=== PATIENT | female | born 1930 | race Caucasian/White ===

== ENCOUNTER → 2017-08-03 | Outpatient (CLI) | payer MEDICARE ==
[~2017-08-03] MED LIST: ALLOPURINOL300 MG PO; AMBIEN5 MG PO; BENTYL10 MG PO; COUMADIN5 MG PO; COUMADIN7.5 MG PO; EPLERENONE; FLUCONAZOLE100 MG PO; FLUTICASONE NASAL; FOLIC ACID1 MG PO; GUIATUSS AC SY120 ML PO; HYDROCODONE; K-DUR10 MEQ; KLOR-CON M2020 MEQ PO; LANTUS100 UNITS/ SQ; LASIX40 MG PO; LEVAQUIN500 MG PO; LISINOPRIL5 MG PO; LOPID600 MG PO; METOPROLOL SUCC50 MG PO; MULTAQ400 MG PO; NEXIUM40 MG PO; NORCO 10-325 T1 EACH PO; NOVOLOG MI100 UNITS/; NOVOLOG100 UNIT/1; PANTOPRAZOLE SO40 MG PO; PRADAXA75 MG; PRINIVIL20 MG PO; SIMVASTATIN40 MG PO; ULTRAM50 MG PO; VITAMIN D1000 UNIT; WARFARIN SODIUM5 MG PO; Z.0.COREG3.125 MG; Z.0.LANTUS100 UNIT/1; Z.0.LASIX40 MG; Z.0.LOPID600 MG; Z.0.NOVOLOG100 UNIT/; Z.0.PRAVASTATIN SOD4; Z.0.VITAMIN D1000 UN; Z.0.WELLBUTRIN XL150; Z.0.ZYLOPRIM300 MG; [UNRECOGNIZED DRUG - OTHER]; [UNRECOGNIZED DRUG - OTHER]; [UNRECOGNIZED DRUG - OTHER]
--- NOTE | 2017-08-03 12:17 | Diagnostic Imaging Report ---
History: Off balance and gait abnormality for 2 months Comparison studies: None Technique: Sagittal T2; axial DWI, FLAIR, MPGR, T1, Coronal FLAIR. Intravenous contrast: None Findings: Scalp: Normal in signal . No masses . Bone marrow: Normal in signal intensity. Extra-axial: Bilateral hemispheric laminar T2/FLAIR hyperintensity, and T1 hypointensity at the subdural spaces measuring approximately 0.5 cm in thickness, without significant blooming or mass effect over the adjacent brain parenchyma . Brain sulci: Appropriate for age. Ventricles: Normal in size . No hydrocephalus . Parenchyma: Scattered T2/FLAIR hyperintensities of the periventricular and deep white matter. Similar changes are seen at the herminio. No masses, acute or chronic vascular insults. Suprasellar region: No abnormalities. Craniocervical junction: No abnormalities. Patent foramen magnum. No Chiari one malformation. Vessels: Normal flow-voids in the arteries and sinuses. Bilateral cataract surgery changes. IMPRESSION: 1. No acute abnormalities. 2. Bilateral hemispheric chronic laminar subdural hematomas without significant mass effect or midline shift. 3. Mild chronic microvascular ischemic changes of the white matter. The above finding was reported and acknowledged by Dr. Keane at 12:12 PM 08/03/2017. Signed by: DR Tu Arriaga M.D. on 08/03/2017 12:13 PM
== END ==
LOC: MRI 08:42
PROVIDERS: ATTEND Family Medicine
DX: R26.9 Unspecified abnormalities of gait and mobility (principal)
CPT/HCPCS: 70551; 93880

== ENCOUNTER → 2017-10-14 | Outpatient (CLI) | payer OTHER ==
--- NOTE | 2017-10-14 14:55 | Diagnostic Imaging Report ---
Exam: Brain MRI without with IV contrast History: Gait abnormality , subdural hematoma Comparison studies: Brain MRI 08/03/2017, head CT 10/03/2012. Technique: Sagittal and axial T2, axial and coronal T2 flair, axial T2*GRE, axial T1 FLAIR and axial DWI Intravenous contrast: None Findings: Scalp: Normal in signal . No masses . Bone marrow: Normal in signal intensity. Brain volume: Appropriate for age. No disproportionate lobar, brainstem, cerebellar or hippocampal atrophy. Ventricles: Normal in size. No hydrocephalus. Extra axial spaces: Bilateral chronic hemispheric subdural hematomas without significant mass effect have further decreased in size and measure up to 1 to 2 mm in max thickness (previously 5 mm). Parenchyma: No mass, hemorrhage or acute ischemia. A few T2 FLAIR hyperintense foci in the supratentorial white matter and mildly confluent T2 FLAIR hyperintense signal changes in the herminio are nonspecific but most compatible with chronic small vessel ischemic changes. Suprasellar region: No abnormalities. Craniocervical junction: Patent foramen magnum. No Chiari malformation . Vessels: Normal flow-voids in the arteries and sinuses. Incidental findings: Bilateral lens or placement related to previous cataract surgery. Disc osteophyte complexes at C3-C4 and C4-C5 and thickened ligamentum flavum result in mild canal stenosis at C3-C4 and moderate canal stenosis at C4-C5. IMPRESSION: 1. 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 2. No new hemorrhage or other changes from the previous brain MRI of 08/30/2017. 3. Mild supratentorial and moderate pontine chronic microvascular ischemic changes. 4. No additional intracranial abnormalities. Signed by: Dr. Reji Vidal M.D. on 10/14/2017 2:52 PM
== END ==
LOC: MRI 11:05
PROVIDERS: ATTEND Psychiatry & Neurology Neurology
DX: I62.00 Nontraumatic subdural hemorrhage, unspecified (principal); R93.0 Abnormal findings on diagnostic imaging of skull and head, not elsewhere classified; R26.9 Unspecified abnormalities of gait and mobility
CPT/HCPCS: 70551

== ENCOUNTER → 2018-01-25 | Outpatient (CLI) | payer MEDICARE | LOC: CARD 08:22 | PROVIDERS: ATTEND Family Medicine | DX: I70.209 Unspecified atherosclerosis of native arteries of extremities, unspecified extremity (principal) | CPT/HCPCS: 93925 ==

== ENCOUNTER → 2018-12-14 | Outpatient (CLI) | payer MEDICARE ==
--- NOTE | 2018-12-14 12:16 | Diagnostic Imaging Report ---
EXAMINATION: Renal ultrasound. CLINICAL HISTORY :UTI COMPARISON: <None available.> TECHNIQUE: Grayscale and color Doppler evaluation of the kidneys and bladder was performed in transverse and longitudinal planes. DISCUSSION: RIGHT KIDNEY: The right kidney measures 10.5 cm in length and shows echogenicity. Septated cyst measures 2.8 x 2.8 x 2.4 cm. Additional simple cyst measures 2.4 x 2.3 x 2.2 cm. Scattered echogenic foci within the collecting system and oblique parenchyma. LEFT KIDNEY: The left kidney measures 10.4 cm in length and shows normal renal cortical echogenicity. exophytic simple cyst measures 3.1 x 3 x 3.7 cm. Second anechoic cyst measures 2.9 x 2 x 2.7 cm. Third simple cyst measures 1.8 x 1.2 x 1.5 cm. BLADDER: Right and left ureteral jets are identified. Incidental note of multiple punctate echogenic foci within the spleen, likely calcified granulomata. IMPRESSION: Bilateral simple renal cysts. Multiple suspected small right renal calculi without hydronephrosis. More peripheral punctate calcifications may represent cortical calcifications. CT abdomen and pelvis without contrast may be of benefit for further evaluation. Signed by: Dr. Reji Ivy M.D. on 12/14/2018 12:13 PM
== END ==
LOC: US 10:26
PROVIDERS: ATTEND Urology
DX: N39.0 Urinary tract infection, site not specified (principal)
CPT/HCPCS: 76770

== ENCOUNTER → 2019-01-30 | Day surgery (SDC) | payer MEDICARE ==
--- NOTE | 2019-01-26 12:30 | Diagnostic Imaging Report ---
EXAMINATION: PA and lateral views of the chest. COMPARISON: None CLINICAL HISTORY: Preoperative study for urological procedure DISCUSSION: Lungs are well-inflated. Calcified granuloma right lower lobe. No airspace consolidation, pleural effusion, or pneumothorax. Tortuous thoracic aorta. Otherwise normal heart size. No overt pulmonary edema. No acute osseous abnormality. Surgical clips left anterior chest wall. IMPRESSION: No acute cardiopulmonary abnormalities. Signed by: Dr. Reji Ivy M.D. on 01/26/2019 12:26 PM
[~2019-01-30] MED LIST changes: +ASPIR 8181 MG PO; +DEXAMETHASONE SOD PHOS INJ 4 MG/ML VIAL ONE; +DILTIAZEM 24HR120 M1 PO; +GABAPENTIN100 MG PO; +HUMALOG100 UNIT/1 SC; +LABETALOL HCL 0 ML ONE; +LEVEMIR100 UNIT/1 SC; +LEVOFLOXACIN 500MG/D5W 100ML 100 ML IV ONE; +LIDOCAINE HCL 2% LOCAL INJ 5 ML SDV VIAL INJ ONE; +MULTI-VITAMIN1 EACH PO; +NITROFURANTOIN100 MG PO; +ONDANSETRON HCL INJ 2MG/ML 2ML 2 MG/ML VIAL ONE; +PROPOFOL IV EMULSION 10 MG/ML 20 ML VIAL ONE; +SEVOFLURANE INHAL SOLN 250 ML PEN BTL ONE
--- OUTSIDE RECORDS SUMMARY | 2019-01-30 09:51 | XMS REPORT ---
Author Author Abdulaziz Hamm Organization [employer] Address Unknown Phone Unavailable Care Team Providers Care Motion Picture Scene Builder Name Role Phone Abdulaziz Hamm CP Unavailable Allergies No Known Allergies Problems Problem Type Condition Code Onset Dates Condition Status Problem DM w/ complication E11.8 Active Problem [place] (dyspnea on exertion) R06.09 Active Problem Dizziness R42 Active Problem DJD (degenerative joint disease) M19.90 Active Problem A-fib I48.91 Active Problem Angina pectoris I20.9 Active Problem Abnormal EKG R94.31 Active Problem Venous (peripheral) insufficiency I87.2 Active Problem Shortness of breath R06.02 Active Problem Swelling of limb M79.89 Active Problem Anginal equivalent I20.8 Active Problem 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 I10 Active Problem Pure hypercholesterolemia E78.01 Active Problem Hypercholesteremia E78.00 Active Medications No Known Medications Results No Known Results Summary Purpose [employer] Submission
--- OUTSIDE RECORDS SUMMARY | 2019-01-30 09:51 | XMS REPORT | CCD ---
Author Author Auto Generated Organization [facility] Address Unknown Phone Unavailable Care Team Providers Care Tailor Garment Fitter Name Role Phone Milan Barkley RP Allergies, Adverse Reactions, Alerts Substance Reaction Status Amoxil Active Bactrim Active Imuran Active vancomycin Active Vaseline Active Medications Medication Instructions Start Date End Date Status Vitamin D3 1000 intl 1,000 IntlUnit, 1 cap, PO, Q 07/03/2012 Ordered units oral capsule [id number]-Tu-[id number], Every other day, 100 cap, Substitution Allowed, CAP Every other day Lactated Ringers 1,000 mL, Rate: 25 ml/hr, Infuse 07/06/2012 07/06/2012 Discontinued Injection IV 1,000 over: 40 hr, Route: IV, kg, Total mL Volume: 1,000, Start date: 07/06/12 12:17:00, Duration: 1 day, Stop date: 07/07/12 12:16:00 Vital Signs Most recent to oldest [Reference Range]: 1 2 3 Height 165.10 cm (07/03/2012 11:44:00) Temperature Oral [96.4-99.1 DegF] 97.8 DegF (07/03/2012 12:27:00) Systolic Blood Pressure [90-140 mmHg] 135 mmHg (07/06/2012 15:30:00) 126 mmHg (07/06/2012 15:15:00) 116 mmHg (07/06/2012 15:00:00) Diastolic Blood Pressure [60-90 mmHg] 71 mmHg (07/06/2012 15:30:00) 68 mmHg (07/06/2012 15:15:00) 65 mmHg (07/06/2012 15:00:00) Respiratory Rate [14-20 BRMIN] 16 BRMIN (07/06/2012 15:30:00) 16 BRMIN (07/06/2012 15:15:00) 16 BRMIN (07/06/2012 15:00:00) Peripheral Pulse Rate [60-100 bpm] 78 bpm (07/03/2012 12:27:00) Weight 79.545 kg (07/03/2012 11:44:00) Results BEDSIDE GLUCOSE TESTING Most recent to oldest [Reference Range]: 1 Gluc POC Lifscn [70-99 mg/dL] 134 mg/dL 1 *HI* (07/06/2012 12:31:00) 1Interpretive Data: Upper Reportable Limit: 200 mg/dL. CHEMISTRY Most recent to oldest [Reference Range]: 1 Sodium Lvl [135-145 mEq/L] 142 mEq/L (07/03/2012 12:45:00) Potassium Lvl [3.5-5.1 mEq/L] 4.0 mEq/L (07/03/2012 12:45:00) Chloride Lvl [95-109 mEq/L] 104 mEq/L (07/03/2012 12:45:00) CO2 [24-32 mEq/L] 32 mEq/L (07/03/2012 12:45:00) AGAP [10.0-20.0 mEq/L] 10.0 mEq/L (07/03/2012 12:45:00) Creatinine Lvl [0.5-1.4 mg/dL] 1.7 mg/dL *HI* (07/03/2012 12:45:00) eGFR 28 mL/min/1.73m2 2 *NA* (07/03/2012 12:45:00) BUN [7-22 mg/dL] 38 mg/dL *HI* (07/03/2012 12:45:00) Glucose Lvl [70-99 mg/dL] 158 mg/dL 3 *HI* (07/03/2012 12:45:00) Calcium Lvl [8.5-10.5 mg/dL] 9.6 mg/dL (07/03/2012 12:45:00) 2Result Comment: The eGFR is calculated using the CKD-EPI formula. In most young, healthy individuals the eGFR will be >90 mL/min/1.73m2. The eGFR declines with age. An eGFR of 60-89 may be normal in some populations, particularly the elderly, for whom the CKD-EPI formula has not been extensively validated. Use of the eGFR is not recommended in the following populations: Individuals with unstable creatinine concentrations, including patients and those with serious co-morbid conditions. Patients with extremes in muscle mass or diet. The data above are obtained from the National Kidney Disease Education Program ( NKDEP) which additionally recommends that when the eGFR is used in patients with extremes of body mass index for purposes of drug dosing, the eGFR should be mul tiplied by the estimated BMI. 3Interpretive Data: Adult reference range values reflect the clinical guidelines of the [place] [employer].
--- OUTSIDE RECORDS SUMMARY | 2019-01-30 09:51 | XMS REPORT | Clinical Summary ---
Author Author [employer] Organization [facility] Address Unknown Phone Unavailable Care Team Providers Care Orthopedics Pediatric Physician Name Role Phone Shiv Keane PCP Allergies Comments Active Allergy Reactions Severity Noted Date Amoxicillin Itching 07/12/2018 Kidney failure Sulfamethoxazole-Trimetho Other (See 07/12/2018 prim Comments) Severe anemia Azathioprine Other (See 07/12/2018 Comments) Dementia like symptoms Metoprolol Other (See 07/12/2018 Comments) Dabigatran Etexilate GI Bleeding 07/12/2018 Stroke symptoms Simvastatin Other (See 07/12/2018 Comments) Vancomycin Itching 07/12/2018 infection White Petrolatum Other (See 07/12/2018 Comments) Medications End Date Status Medication Sig Dispensed Refills Start Date Active allopurinol (ZYLOPRIM) Take 300 mg 0 300 MG tabletIndications: by mouth 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 Active furosemide (LASIX) 40 MG Take 40 mg by 0 tabletIndications: mouth 2 (two) Idiopathic chronic gout times a day. of multiple sites without tophus Active lisinopril Take 20 mg by 0 (PRINIVIL,ZESTRIL) 20 MG mouth daily. 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 of multiple sites without tophus Active insulin GLARGINE (LANTUS) Inject 35 0 100 unit/mL Units under injectionIndications: the skin Idiopathic chronic gout nightly. of multiple sites without tophus Active insulin asp prt-insulin Inject under 0 ASPART (NovoLOG 70/30) the skin 2 100 unit/mL (70-30) (two) times a injectionIndications: day before Idiopathic chronic gout meals. of multiple sites without tophus Active gabapentin (NEURONTIN) Take 100 mg 0 100 mg capsule by mouth 3 (three) times a day. Active amLODIPine (NORVASC) 10 Take 10 mg by 0 mg tablet mouth daily. Active mv-min/iron/folic/calcium Take by mouth 0 /vitK (WOMEN'S daily. MULTIVITAMIN ORAL) 07/12/2018 Discontinued metoprolol tartrate TK 1 T PO BID 0 (LOPRESSOR) 50 MG 6 tabletIndications: Idiopathic chronic gout of multiple sites without tophus 07/12/2018 Discontinued warfarin (COUMADIN) 5 MG Take 5 mg by 0 tabletIndications: mouth daily. Idiopathic chronic gout Take 1 tablet of multiple sites without (5mg) by tophus mouth daily for 30 days. 07/19/2018 Discontinued aspirin (ECOTRIN) 81 MG Take 81 mg by 0 enteric coated tablet mouth daily. 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 SLE (systemic lupus erythematosus) Diabetes mellitus with neuropathy Hypertension GERD without esophagitis Hyperlipidemia Anxiety and depression Asthma Encounters Care Team Description Date Type Specialty Jaime Gloria MD 07/19/2018 Anesthesia General Surgery Event Purnima Tao MD LEFT BREAST LUMPECTOMY W/ POSSIBLE ONCOPLASTIC CLOSURE 07/19/2018 Surgery General Surgery Purnima Tao MD Pre-op testing 07/19/2018 [facility] General Surgery Encounter Purnima Tao MD Pre-op testing (Primary Dx) 07/12/2018 Pre-Admit Pre-Admission Testing Testing Appointment Purnima Tao MD Pre-op testing 07/12/2018 Hospital Radiology Encounter after 01/29/2018 Family History Medical History Relation Name Comments Diabetes Father Heart attack Father Cancer Mother Parkinsonism Mother Relation Name Status Comments Father Mother Social History Date Tobacco Use Types Packs/Day Years Used Never Smoker Smokeless Tobacco: Never Used Tobacco Cessation: Counseling Given: No Alcohol Use Drinks/Week oz/Week Comments No Sex Assigned at Date Recorded Not on file Industry Job Start Date Occupation Not on file Not on file Not on file Travel End Travel History Travel Start No recent travel history available. Last Filed Vital Signs Time Taken Vital Sign Reading 07/19/2018 1:35 PM MAIL MESSENGER CONTRACTOR Blood Pressure 150/80 07/19/2018 1:35 PM MAIL MESSENGER CONTRACTOR Pulse 98 07/19/2018 12:32 PM MAIL MESSENGER CONTRACTOR Temperature 36.4 C (97.5 F) 07/19/2018 1:35 PM MAIL MESSENGER CONTRACTOR Respiratory Rate 20 07/19/2018 1:35 PM MAIL MESSENGER CONTRACTOR Oxygen Saturation 98% - Inhaled Oxygen - Concentration 07/19/2018 8:52 AM MAIL MESSENGER CONTRACTOR Weight 73.1 kg (161 lb 1.6 oz) 07/19/2018 8:52 AM MAIL MESSENGER CONTRACTOR Height 165.1 cm (5' 5") 07/19/2018 8:52 AM MAIL MESSENGER CONTRACTOR Body Mass Index 26.81 Plan of Treatment Health Maintenance Due Date Last Done Comments DIABETIC RETINAL EYE EXAM 1931 DIABETIC FOOT EXAM 1941 URINE MICROALBUMIN 1941 SHINGLES VACCINES (#1) 1981 65+ PNEUMOCOCCAL VACCINE 1996 (1 of 2 - PCV13) INFLUENZA VACCINE 03/01/2019 Procedures Comments Procedure Name Priority Date/Time Associated Diagnosis BREAST SPECIMEN Routine 07/19/2018 12:35 PM MAIL MESSENGER CONTRACTOR POC GLUCOSE Routine 07/19/2018 12:13 PM MAIL MESSENGER CONTRACTOR SURGICAL PATHOLOGY Routine 07/19/2018 REQUEST 11:14 AM MAIL MESSENGER CONTRACTOR WI AN ELECTIVE Routine 07/19/2018 SUPRAGLOTTIC AIRWAY 10:58 AM MAIL MESSENGER CONTRACTOR Procedure Note - Wing Vazquez CRNA - 07/19/2018 10:58 AM MAIL MESSENGER CONTRACTOR ANESTHESIA INTUBATION Date/Time: 07/19/2018 10:45 AM Performed by: Wing Vazquez CRNA Authorized by: Alejandro Gloria MD Location: OR Urgency: Elective Anesthesio logist: Alejandro Gloria MD Resident/C RNA/AA: Wing Vazquez CRNA Performed by: resident/C RNA and resident/C RNA/AA Preoxygena ning with 100% O2: Yes C-spine Precaution s Maintained Throughout : Yes Mask Ventilatio n: Not attempted Final Airway Type: Supraglott ic airway Final LMA: Unique LMA Size: 4 Number of Attempts at Approach: 1 Teeth intact, atraumatic intubation INCISIONAL BIOPSY, BREAST 07/19/2018 LEFT BREAST CANCER 10:35 AM MAIL MESSENGER CONTRACTOR C50.112 POC GLUCOSE Routine 07/19/2018 9:43 AM MAIL MESSENGER CONTRACTOR XR CHEST 2 VW Routine 07/12/2018 Pre-op testing 2:48 PM MAIL MESSENGER CONTRACTOR ESTIMATED GFR Routine 07/12/2018 2:20 PM MAIL MESSENGER CONTRACTOR COMPREHENSIVE METABOLIC Routine 07/12/2018 Pre-op testing PANEL 2:20 PM MAIL MESSENGER CONTRACTOR HC COMPLETE BLD COUNT Routine 07/12/2018 Pre-op testing W/AUTO DIFF 2:20 PM MAIL MESSENGER CONTRACTOR after 01/29/2018 Results * Breast Specimen (07/19/2018 12:35 PM MAIL MESSENGER CONTRACTOR) Specimen Narrative Performed At EXAMINATION:BREAST [id number]/19/2018 12:35 PM [employer] IMPRESSION: Intra-operative digital Faxitron breast specimen radiography was provided for the surgeon by [facility]. A radiologist was not contacted or involved in the interpretation of the images. Please see the surgical operative and/or pathology note for further information and image interpretation. [id number] Performing Organization Address City/[facility]/Zipcode Phone Number [email or web address] [address] [place] [address] * POC glucose (07/19/2018 12:13 PM MAIL MESSENGER CONTRACTOR) Only the most recent of 2 results within the time period is included. Pathologist [facility] POC glucose 84 65 - 99 mg/dL [facility] Comment: [facility] Meter ID: [id number] [facility] Film And Video Editor: Kvng Carroll Specimen Performing Organization Address City/[facility]/Zipcode Phone Number [facility] [address]MENT [place] [id number] [place] [address] [place] [id number] PATHOLOGY AND GENOMIC MEDICINE [facility] [id number] [place] [address] [place] [address] [facility] * Surgical pathology request (07/19/2018 11:14 AM MAIL MESSENGER CONTRACTOR) Pathologist [facility] DEPARTMENT OF PATHOLOGY AND GENOMIC MEDICINE Surgical See link below for PDF Lab [facility] pathology Report DEPARTMENT OF report PATHOLOGY AND GENOMIC MEDICINE Result status This is Final Report for [facility] [id number] DEPARTMENT OF PATHOLOGY AND GENOMIC MEDICINE Specimen Performing Organization Address [facility] Phone Number [address] [place] [phone] PATHOLOGY AND GENOMIC MEDICINE * XR Chest 2 Vw (07/12/2018 2:48 PM MAIL MESSENGER CONTRACTOR) Specimen Narrative Performed At EXAMINATION:XR CHEST 2 VW RADIANT CLINICAL HISTORY:Z01.818 Encounter for other preprocedural examination, pre op COMPARISON:12/20/2001 IMPRESSION: 1.Small calcified granuloma in the right midlung field. Lungs are otherwise clear. 2.Top normal heart size. Aorta is mildly atherosclerotic. 3.No acute osseous abnormality. [id number] Procedure Note Hm Interface, Radiology Results Incoming - 07/12/2018 2:57 PM MAIL MESSENGER CONTRACTOR EXAMINATION: XR CHEST 2 VW CLINICAL HISTORY: Z01.818 Encounter for other preprocedural examination, pre op COMPARISON: 12/20/2001 IMPRESSION: 1. Small calcified granuloma in the right midlung field. Lungs are otherwise clear. 2. Top normal heart size. Aorta is mildly atherosclerotic. 3. No acute osseous abnormality. [id number] Performing Organization Address [facility] Facility[facility] Phone Number [facility] [address] [place] [address] * Estimated GFR (07/12/2018 2:20 PM MAIL MESSENGER CONTRACTOR) Estimated GFR 37 (A) mL/min/1.73 m2 [facility] Comment: [facility] rpretation G1 >=90 Normal or high G2 60-89Mildly decreased [id number] Mildly to moderately decreased [id number] Moderately to severely decreased G4 15-29Severely decreased G5 <15Kidney failure The eGFR was calculated using the Chronic Kidney Disease Epidemiology Collaboration (CKD-EPI) equation. Interpretation is based on recommendations of the National Kidney Foundation-Kidney Disease Outcomes Quality Initiative (NKF-KDOQI) published in 2014. Specimen Plasma specimen Performing Organization Address City/[facility]/Zipcode Phone Number [facility] DEPARTMENT OF [address] [place] [address] [place] [address] PATHOLOGY AND GENOMIC MEDICINE [address] * CBC with platelet and differential (07/12/2018 2:20 PM MAIL MESSENGER CONTRACTOR) [facility] WBC 10.95 4.50 - 11.00 k/uL [facility] RBC 4.56 4.20 - 5.50 m/uL [facility] HGB 13.1 12.0 - 16.0 g/dL [facility] HCT 41.1 37.0 - 47.0 % [facility] MCV 90.1 82.0 - 100.0 fL [facility] MCH 28.7 27.0 - 34.0 pg [facility] MCHC 31.9 31.0 - 37.0 g/dL [facility] RDW - SD 52.4 37.0 - 55.0 fL [facility] MPV 10.4 8.8 - 13.2 fL [facility] Platelet count 324 150 - 400 k/uL [facility] Nucleated RBC 0.00 /100 WBC [facility] Neutrophils 62.9 39.0 - 69.0 % [facility] Lymphocytes 22.4 (L) 25.0 - 45.0 % [facility] Monocytes 8.5 0.0 - 10.0 % [facility] Eosinophils 4.8 0.0 - 5.0 % [facility] Basophils 0.9 0.0 - 1.0 % [facility] Specimen Blood Performing Organization Address City/State/Zipcode Phone Number [facility] [id number] [place] [address] [place] [address] PATHOLOGY AND GENOMIC MEDICINE [address] * Comprehensive metabolic panel (07/12/2018 2:20 PM MAIL MESSENGER CONTRACTOR) [facility] Sodium 142 135 - 148 mEq/L [facility] Potassium 3.6 3.5 - 5.0 mEq/L [facility] Chloride 99 98 - 112 mEq/L [facility] CO2 29 24 - 31 mEq/L [facility] Anion gap 14@ANIO 7 - 15 mEq/L [facility] BUN 29 (H) 8 - 23 mg/dL [facility] Creatinine 1.30 (H) 0.50 - 0.90 mg/dL [facility] Glucose 169 (H) 65 - 99 mg/dL [facility] Calcium 10.3 (H) 8.8 - 10.2 mg/dL [facility] Protein 7.7 6.3 - 8.3 g/dL [facility] Comment: [facility] [place] [place] 4.6-7.0 g/dL 1 week 4.4-7.6 g/dL 7 months-1year 5.1-7.3 g/dL 1-2 years5.6-7 .5 g/dL >3 years6.0-8 .0 g/dL 18-150 6.3-8.3 g/dL Albumin 4.6 3.5 - 5.0 g/dL [facility] A/G ratio 1.5 0.7 - 3.8 [facility] Alkaline 110 (H) 35 - 104 U/L [facility] phosphatase [facility] AST 17 10 - 35 U/L [facility] ALT 16 5 - 50 U/L [facility] Total bilirubin 0.3 0.0 - 1.2 mg/dL [facility] Specimen Plasma specimen Performing Organization Address City/State/Zipcode Phone Number [facility] DEPARTMENT [address] [place] [address] PATHOLOGY AND GENOMIC MEDICINE [facility] [id number] [place] [address] [place] [address] [facility] after 01/29/2018 Insurance Type Payer Benefit Subscriber ID Effective Phone Address Plan / Dates Group PPO HUMANA MEDICARE HUMANA xxxxxxxxx [id number] MEDICARE resent PPO/PFFS/E [facility] Advance Directives Patient has advance care planning documents on file. For more information, ketan price contact: [facility] [address] [place] [address]
--- OUTSIDE RECORDS SUMMARY | 2019-01-30 09:51 | XMS REPORT | Continuity of Care Document ---
Author Author [employer] Address Unknown Phone Unavailable Care Team Providers Care Furnace Keeper Name Role Phone [employer] Unavailable Unavailable Problems Problem Status Onset Date Classification Date Reported Comments Source 599.72; BENIGN ESSENTIAL MICROSCOPIC HEM Active 12/18/2014 [facility] 401.9/250.00/787.20/V16.0/530.81/535.00/ Active 06/15/2012 [facility] DM w/ complication Active Problem 05/04/2018 Mohamed O Erickludi FAIRBANKS Active Problem 05/04/2018 Mohamed O Jerludi Dizziness Active Problem 05/04/2018 Mohamed O Nighatdi DJD Active Problem 05/04/2018 Mohamed O Erickoudi A-fib Active Problem 05/04/2018 Mohamed O Jeroudi Angina pectoris Active Problem 05/04/2018 Mohamed O Jeroudi Abnormal EKG Active Problem 05/04/2018 Mohamed O Erickoudi Venous insufficiency Active Diagnosis 05/04/2018 Mohamed O Jeroudi Shortness of breath Active Problem 05/04/2018 Mohamed O Jeroudi Swelling of limb Active Problem 05/04/2018 Mohamed O Jeroudi Anginal equivalent Active Problem 05/04/2018 Mohamed O Erickludi 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 Active Problem 05/04/2018 Mohamed O Erickoudi Pure hypercholesterolemia Active Problem 05/04/2018 Mohamed O Jeroudi Hypercholesteremia Active Diagnosis 05/04/2018 Mohamed O Erickoudi HYPERTENSION NOS Active [facility] 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 [facility] DYSPHAGIA NOS Active [facility] Medications Medication Details Route Status Patient Instructions Ordering Provider Order Date Source Lactated Ringers Injection IV 1,000 mL 1,000 mL, Rate: 25 ml/hr, Infuse over: 40 hr, Route: IV, kg, Total Volume: 1,000, Start date: 07/06/12 12:17:00, Duration: 1 day, Stop date: 07/07/12 12:16:00 IV No Longer Active Prem 07/06/2012 [facility] Vitamin D3 1000 intl units oral capsule 1,000 IntlUnit, 1 cap, PO, Q --, Every other day, 100 cap, Substitution Allowed, CAPEvery other day PO Active 07/03/2012 [facility] Lantus Solution NA Active 35 UNITS Once a day Noris Hamm Potassium Chloride 1 capsule Orally Active 20 MEQ Orally BID Noris Hamm Lasix 1 tablet Orally Active 40 mg Orally once a day Noris Hamm Pantoprazole Sodium 1 tablet Orally Active 40 mg Orally Once a day Noris Hamm Gemfibrozil 1 tablet Orally Active 600 MG Orally Once a day Noris Hamm Warfarin Sodium 1/2 tabletWF, 1 tablet MTTHSS Orally Active 5 MG Orally Once a day Noris Hamm Lisinopril 1 tablet Orally Active 40 MG Orally Once a day Noris Hamm NovoLog Solution Subcutaneous Active sliding scale Subcutaneous Noris Hamm Gabapentin 1 tablet Orally Active 100 MG Orally daily Noris Hamm Amlodipine Besylate 1/2 half tablet Orally Active 10 MG Orally twice a day (bid) Noris Hamm Humalog not defined Subcutaneous Active 100 UNIT/ML Subcutaneous Noris Hamm Aspirin 1 tablet Orally Active 81 MG Orally Once a day Noris Hamm Allopurinol 1 tablet Orally Active 300 MG Orally Once a day Noris Hamm Allergies, Adverse Reactions, Alerts Substance Category Reaction Severity Reaction type Status Date Reported Comments Source Bactrim Adverse Reaction Kidney Failure Adverse Reaction Active 01/13/2017 Abdulaziz Hamm Imuran Adverse Reaction Severe anemia Adverse Reaction Active 01/13/2017 Abdulaziz Hamm Vaseline Adverse Reaction Infection Adverse Reaction Active 01/13/2017 Abdulaziz Hamm Pradaxa Adverse Reaction Colon Hemorrhage Adverse Reaction Active 01/13/2017 Abdulaziz Hamm Amoxicillin Adverse Reaction Caused itching Adverse Reaction Active 01/13/2017 Abdulaziz Hamm Vancomycin HCl Adverse Reaction Iching Adverse Reaction Active 01/13/2017 Abdulaziz Hamm Simvastatin Adverse Reaction difficulty walking Adverse Reaction Active 01/13/2017 Abdulaziz Hamm Metoprolol Tartrate Adverse Reaction weakness/memory impairement Adverse Reaction Active 01/13/2017 Abdulaziz Hamm Amoxil drug allergy Allergy Active [facility] vancomycin drug allergy Allergy Active [facility] Immunizations No Data Provided for This Section Results Order Name Results Value Reference Range Date Interpretation Comments Source BEDSIDE GLUCOSE TESTING Gluc POC Lifscn 134 70 - 99 07/06/2012 [facility] <sup>1</sup>Interpretive Data: Upper Reportable Limit: 200 mg/dL. [facility] CHEMISTRY AGAP 10.0 10.0 - 20.0 07/03/2012 Normal [facility] CHEMISTRY Potassium Lvl 4.0 3.5 - 5.1 07/03/2012 Normal [facility] CHEMISTRY Calcium Lvl 9.6 8.5 - 10.5 07/03/2012 Normal [facility] CHEMISTRY CO2 32 24 - 32 07/03/2012 Normal [facility] CHEMISTRY Chloride Lvl 104 95 - 109 07/03/2012 Normal [facility] CHEMISTRY Glucose Lvl 158 70 - 99 07/03/2012 [facility] <sup>3</sup>Interpretive Data: Adult reference range values reflect the clinical guidelines
of the [place] [employer]. [facility] CHEMISTRY Creatinine Lvl 1.7 0.5 - 1.4 07/03/2012 [facility] CHEMISTRY Sodium Lvl 142 135 - 145 07/03/2012 Normal [facility] CHEMISTRY BUN 38 7 - 22 07/03/2012 [facility] CHEMISTRY eGFR 28 07/03/2012 NA <sup>2</sup>Result Comment: The eGFR is calculated using the CKD-EPI formula. In most young, healthy individuals the eGFR will be >90 mL/min/1.73m2. The eGFR declines with age. An eGFR of 60-89 may be normal in some populations, particularly the elderly, for whom the CKD-EPI formula has not been extensively validated. Use of the eGFR is not recommended in the following populations:& lt;br/>
Individuals with unstable creatinine concentrations, including patients and those with serious co-morbid conditions.

Patients with extremes in muscle mass or diet.

The data above are obtained from the National Kidney Disease Education Program (NKDEP) which additionally recommends that when the eGFR is used in patients with extremes of body mass index for purposes of drug dosing, the eGFR should be multiplied by the estimated BMI. [facility] Pathology Reports No Data Provided for This Section Diagnostic Reports No Data Provided for This Section Consultation Notes No Data Provided for This Section Discharge Summaries No Data Provided for This Section History and Physicals No Data Provided for This Section Vital Signs Vital Sign Value Date Comments Source Weight 166 01/05/2018 Mohamed O Ercikoudi Height 65 01/05/2018 Mohamed O Jeroudi Temperature Oral (F) 98.1 F 01/05/2018 Mohamed O Jeroudi Heart Rate 90 01/05/2018 Mohamed O Jeroudi Diastolic (mm Hg) 86 01/05/2018 Mohamed O Jeroudi Systolic (mm Hg) 140 01/05/2018 Mohamed O Jeroudi Weight 161 07/04/2017 Mohamed O Jeroudi Height 65 07/04/2017 Mohamed O Jeroudi Temperature Oral (F) 98.6 F 07/04/2017 Mohamed O Jeroudi Heart Rate 92 07/04/2017 Mohamed O Jeroudi Diastolic (mm Hg) 90 07/04/2017 Mohamed O Jeroudi Systolic (mm Hg) 142 07/04/2017 Mohamed O Jeroudi Weight 160 01/13/2017 Mohamed O Jeroudi Height 65 01/13/2017 Mohamed O Jeroudi Temperature Oral (F) 97.6 F 01/13/2017 Mohamed O Jeroudi Heart Rate 70 01/13/2017 Mohamed O Jeroudi Diastolic (mm Hg) 80 01/13/2017 Mohamed O Jeroudi Systolic (mm Hg) 136 01/13/2017 Mohamed O Jeroudi Respitory Rate 16 07/06/2012 [facility] Systolic (mm Hg) 135 07/06/2012 [facility] Diastolic (mm Hg) 71 07/06/2012 [facility] Respitory Rate 16 07/06/2012 [facility] Systolic (mm Hg) 126 07/06/2012 [facility] Diastolic (mm Hg) 68 07/06/2012 [facility] Respitory Rate 16 07/06/2012 [facility] Systolic (mm Hg) 116 07/06/2012 [facility] Diastolic (mm Hg) 65 07/06/2012 [facility] Temperature Oral (F) 97.8 F 07/03/2012 [facility] Heart Rate 78 07/03/2012 [facility] Weight 79.545 07/03/2012 [facility] Height 165.10 cm 07/03/2012 [facility] Encounters Location Location Details Encounter Type Encounter Number Reason For Visit Attending Provider ADM Date DC Date Status Source [facility] [id number] SP MARIE 07/06/2012 07/06/2012 Discharged [facility] Procedures No Data Provided for This Section Assessment and Plan No Data Provided for This Section Plan of Care No Data Provided for This Section Social History No Data Provided for This Section Family History No Data Provided for This Section Advance Directives No Data Provided for This Section Functional Status No Data Provided for This Section
--- OUTSIDE RECORDS SUMMARY | 2019-01-30 09:52 | XMS REPORT ---
Author Author Magnolia Hamm Organization [employer] Address Unknown Phone Unavailable Care Team Providers Care Delivery And Mail Sorter Name Role Phone Magnolia Hamm Unavailable Allergies, Adverse Reactions, Alerts Substance Reaction Event Type Pradaxa Colon Hemorrhage Drug Allergy Amoxicillin Caused itching Drug Allergy Bactrim Kidney Failure Drug Allergy Vaseline Infection Drug Allergy Vancomycin HCl Iching Drug Allergy Simvastatin difficulty walking Drug Allergy Metoprolol Tartrate weakness/memory impairement Drug Allergy Imuran Severe anemia Drug Allergy Problems Problem Type Condition Code Onset Dates Condition Status Problem DM w/ complication E11.8 Active Problem FAIRBANKS (dyspnea on exertion) R06.09 Active Problem Dizziness R42 Active Problem DJD (degenerative joint disease) M19.90 Active Assessment Venous (peripheral) insufficiency I87.2 Active Problem A-fib I48.91 Active Problem Angina pectoris I20.9 Active Problem Abnormal EKG R94.31 Active Problem Venous (peripheral) insufficiency I87.2 Active Problem Shortness of breath R06.02 Active Problem Swelling of limb M79.89 Active Assessment Abnormal EKG R94.31 Active Assessment [place] (dyspnea on exertion) R06.09 Active Assessment DM w/ complication E11.8 Active Assessment Hypercholesteremia E78.00 Active Problem Anginal equivalent I20.8 Active Problem 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 I10 Active Assessment 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 I10 Active Problem Pure hypercholesterolemia E78.01 Active Assessment A-fib I48.91 Active Problem Hypercholesteremia E78.00 Active Medications Medication Code System Code Instructions Start Date End Date Status Dosage Lantus NDC 0 35 UNITS Once a day Active Solution Potassium Chloride [facility] [address]-02 20 MEQ Orally BID Active 1 capsule Lasix ND 36766432893 40 mg Orally once a day Active 1 tablet Pantoprazole Sodium ND 15724019214 40 mg Orally Once a day Active 1 tablet Gemfibrozil ND 70019758126 600 MG Orally Once a day Active 1 tablet Warfarin Sodium [facility] 55371515338 5 MG Orally Once a day Active 1/2 tabletWF, 1 tablet MTTHSS Lisinopril [facility] 27871471164 40 MG Orally Once a day Active 1 tablet NovoLog [facility] 92136630369 sliding scale Subcutaneous Active Solution Gabapentin [facility] 07824978123 100 MG Orally daily Active 1 tablet Amlodipine Besylate [facility] 02304006440 10 MG Orally twice a day (bid) Active 1/2 half tablet Vital Signs Date/Time: January 13, 2017 BMI 26.62 Index Weight 160 lbs Height 65 in Temperature 97.6 F Cardiac Monitoring Heart Rate 70 /min Blood Pressure Diastolic 80 mm Hg Blood Pressure Systolic 136 mm Hg Results No Known Results Summary Purpose [employer] Submission
--- OUTSIDE RECORDS SUMMARY | 2019-01-30 09:52 | XMS REPORT ---
Author Author [facility] Address Unknown Phone Unavailable Care Team Providers Care Licensed Embalmer Name Role Phone Doris WESTON Unavailable Unavailable SONIA NICOLE Unavailable Unavailable BONNIE KEANE Unavailable Unavailable Problems This patient has no known problems. Allergies, Adverse Reactions, Alerts This patient has no known allergies or adverse reactions. Medications This patient has no known medications. Results Test Description Test Time Test Comments Text Results Atomic Results Result Comments CHEST 2 VIEWS 2019-01-26 12:24:00 [place] [address] Patient Name: JUSTIN MIRANDA MR #: [id number] : 1930 Age/Sex: 88/F Req #: [id number] Adm Physician: Ordered by: RADHA WESTON MD Report #: [id number] Location: OR Room/Bed: Procedure: [id number] DX/CHEST 2 VIEWS Exam Date: 01/26/19 Exam Time: 1200 REPORT STATUS: Signed EXAMINATION: PA and lateral views of the chest. COM PARISON: None CLINICAL HISTORY: Preoperative study for urological procedure DISCUSSION: Lungs are well-inflated. Calcified granuloma right lower lobe. No airspace consolidation, pleural effusion, or pneumothorax. Tortuous thoracic aorta. Otherwise normal heart size. No overt pulmonary edema. No acute osseous abnormality. Surgical clips left anterior chest wall. IMPRESSION: No acute cardiopulmonary abnormalities. Signed by: Dr. Janet Shafer M.D. on 01/26/2019 12:26 PM Dictated By: JANET SHAFER MD 25 Transcribed By: ELIZABETH on 01/26/191225 COPY TO: RADHA WESTON MD RENAL RETROPERITONEAL COMP 2018-12-14 12:10:00 [place] [address] Patient Name: JUSTIN MIRANDA MR #: [id number] : 1930 Age/Sex: 88/F Req #: [id number] [facility] Physician: Ordered by: RADHA WESTON MD Report #: [id number] Location: Room/Bed: Procedure: [id number] US/US RENAL RETROPERITONEAL COMP Exam Date: Exam Time: REPORT STATUS: Signed EXAMINATION: Renal ultrasound. CLINICAL HISTORY :UTI COMPARISON: <None available.> TECHNIQUE: Grayscale and color Doppler evaluation of the kidneys and bladder was performed in transverse and longitudinal planes. DISCUSSION: RIGHT KIDNEY: The right kidney measures 10.5 cm in length and shows echogenicity. Septated cyst measures 2.8 x 2.8 x 2.4 cm. Additional simple cyst measures 2.4 x 2.3 x 2.2 cm. Scattered echogenic foci within the collecting system and oblique parenchyma. LEFT KIDNEY: The left kidney measures 10.4 cm in length and shows normal renal cortical echogenicity. exophytic simple cyst measures 3.1 x 3 x 3.7 cm. Second anechoic cyst measures 2.9 x 2 x 2.7 cm. Third simple cyst measures 1.8 x 1.2 x 1.5 cm. BLADDER: Right and left ureteral jets are identified. Incidental note of multiple punctate echogenic foci within the spleen, likely calcified granulomata. IMPRESSION: Bilateral simple renal cysts. Multiple suspected small right renal calculi without hydronephrosis. More peripheral punctate calcifications may represent cortical calcifications. CT abdomen and pelvis without contrast may be of benefit for further evaluation. Signed by: Dr. Janet Shafer M.D. on 12/14/2018 12:13 PM Dictated By: JANET SHAFER MD 1213 Transcribed By: ELIZABETH on 12/14/18 1213 COPY TO: RADHA WESTON MD DIAG MAMM BILATERAL ZENA CAD DIGITAL 2018-06-14 08:42:59 - DIAG MAMM BILATERAL ZENA CAD DIGITALBILATERAL DIGITAL DIAGNOSTIC MAMMOGRAM 3D/2D WITH CAD: 06/13/2018CLINICAL: Follow up to previous exam. Digital breast tomosynthesis was performed in addition to routine CC and MLO views. Current mammographic images were evaluated by either a [facility] M-Vu or a [employer] ImageChecker CAD (computer aided detection system). Comparison is made to exam dated 02/06/2018 mammogram - [facility]. The tissue of both breasts is heterogeneously dense. This may lower the sensitivity of mammography. There are benign vascular calcifications in both breasts. The mass in the left breast at 11 o'clock is less well defined. KNOWN BIOPSY PROVEN MALIGNANCYUltrasound pending for further evaluation.- BREAST ULTRASOUND BILATERALULTRASOUND OF BOTH BREASTS AND BOTH AXILLA: 06/13/2018Comparison is made to exam dated 02/06/2018 mammogram - [facility]. Real-time ultrasound of both breasts and both axilla was performed. 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 There are areas of degeneration throughout the mass. No abnormalities were seen sonographically in either axilla. Benign cysts and dilated ducts were seen bilaterally. No solid masses were seen. IMPRESSION: KNOWN BIOPSY PROVEN MALIGNANCY - FOLLOW-UP RECOMMENDEDThe 3.5 cm mass in the left breast is showing only minimal response. Consideration should be given to surgical removal. Cheyenne Zhu M.D. dm/:06/14/2018 08:42:59 Entry: - 06/16/2018 10:58:32copy to: Abdulaziz Bland M.D., ph: [phone], fax: [phone] Technologist: Yael PEÑA, [facility] Mamm[facility] BI-RADS: 6 Known biopsy proven malignancy Ultrasound BI-RADS: 6 Known biopsy proven malignancy BREAST ULTRASOUND BILATERAL 2018-06-14 08:42:59 - DIAG MAMM BILATERAL ZENA CAD DIGITALBILATERAL DIGITAL DIAGNOSTIC MAMMOGRAM 3D/2D WITH CAD: 06/13/2018CLINICAL: Follow up to previous exam. Digital breast tomosynthesis was performed in addition to routine CC and MLO views. Current mammographic images were evaluated by either a [facility]u or a [employer] ImageChecker CAD (computer aided detection system). Comparison is made to exam dated [facility]06/2018 [facility]. The tissue of both breasts is heterogeneously dense. This may lower the sensitivity of mammography. There are benign vascular calcifications in both breasts. The mass in the left breast at 11 o'clock is less well defined. KNOWN BIOPSY PROVEN MALIGNANCYUltrasound pending for further evaluation.- BREAST ULTRASOUND BILATERALULTRASOUND OF BOTH BREASTS AND BOTH AXILLA: 06/13/2018Comparison is made to exam dated 02/06/2018 [facility]. Real-time ultrasound of both breasts and both axilla was performed. 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 There are areas of degeneration throughout the mass. No abnormalities were seen sonographically in either axilla. Benign cysts and dilated ducts were seen bilaterally. No solid masses were seen. IMPRESSION: KNOWN BIOPSY PROVEN MALIGNANCY - FOLLOW-UP RECOMMENDEDThe 3.5 cm mass in the left breast is showing only minimal response. Consideration should be given to surgical removal. Cheyenne Zhu M.D. dm/:06/14/2018 08:42:59 Entry: - 06/16/2018 10:58:32copy to: Abdulaziz Bland M.D., ph: [phone], fax: [phone] Technologist: Yael PEÑA, [facility] Mammogram BI-RADS: 6 Known biopsy proven malignancy Ultrasound BI-RADS: 6 Known biopsy proven malignancy MRI BRAIN WO [place] [address] Patient Name: JUSTIN MIRANDA MR #: [id number] : 1930 Age/Sex: 87/F Req #: [id number] Adm Physician: Ordered by: SONIA NICOLE MD Report #: [id number] Location: MRI Room/Bed: Procedure: [id number] MRI/MRI BRAIN WO Exam Date: Exam Time: REPORT STATUS: Signed Exam: Brain MRI without with IV contrast History: Gait abnormality , subdural hematoma Comparison studies: Brain MRI 08/03/2017, head CT 10/03/2012. Technique: Sagittal and axial T2, axial and coronal T2 flair, axial T2*GRE, axial T1 FLAIR and axial DWI Intravenous contrast: None Findings: Scalp: Normal in signal . No masses . Bone marrow: Normal in signal intensity. Brain volume: Appropriate for age. No disproportionate lobar, brainstem, cerebellar or hippocampal atrophy. Ventricles: Normal in size. No hydrocephalus. Extra axial spaces: Bilateral chronic hemispheric subdural hematomas without significant mass effect have further decreased in size and measure up to 1 to 2 mm in max thickness (previously 5 mm). Parenchyma: No mass, hemorrhage or acute ischemia. A few T2 FLAIR hyperintense foci in the supratentorial white matter and mildly confluent T2 FLAIR hyperintense signal changes in the herminio are nonspecific but most compatible with chronic small vessel ischemic changes. Suprasellar region: No abnormalities. Craniocervical junction: Patent foramen magnum. No Chiari malformation . Vessels: Normal flow-voids in the arteries and sinuses. Incidental findings: Bilateral lens or placement related to previous cataract surgery. Disc osteophyte complexes at C3-C4 and C4-C5 and thickened ligamentum flavum result in mild canal stenosis at C3-C4 and moderate canal stenosis at C4-C5. IMPRESSION: 1. 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 2. No new hemorrhage or other changes from the previous brain MRI of 08/30/2017. 3. Mild supratentorial and moderate pontine chronic microvascular ischemic changes. 4. No additional intracranial abnormalities. Signed by: Dr. Janet Vidal M.D. on 10/14/2017 2:52 PM Dictated By: JANET VIDAL MD 51 Transcribed By: ELIZABETH on 10/14/17 145 COPY TO: SONIA NICOLE MD MRI BRAIN WO [place] [address] Patient Name: JUSTIN MIRANDA MR #: [id number] : 1930 Age/Sex: 87/F Req #: [id number] Adm Physician: Ordered by: BONNIE KEANE DO Report #: [id number] Location: MRI Room/Bed: Procedure: [id number] MRI/MRI BRAIN WO Exam Date: 08/03/17 Exam Time: 0915 REPORT STATUS: Signed History: Off balance and gait abnormality for 2 months Comparison studies: None Technique: Sagittal T2; axial DWI, FLAIR, MPGR, T1, Coronal FLAIR. Intravenous contrast: None Findings: Scalp: Normal in signal . No masses . Bone marrow: Normal in signal intensity. Extra-axial: Bilateral hemispheric laminar T2/FLAIR hyperintensity, and T1 hypointensity at the subdural spaces measuring approximately 0.5 cm in thickness, without significant blooming or mass effect over the adjacent brain parenchyma . Brain sulci: Appropriate for age. Ventricles: Normal in size . No hydrocephalus . Parenchyma: Scattered T2/FLAIR hyperintensities of the periventricular and deep white matter. Similar changes are seen at the herminio. No masses, acute or chronic vascular insults. Suprasellar region: No abnormalities. Craniocervical junction: No abnormalities. Patent foramen magnum. No Chiari one malformation. Vessels: Normal flow-voids in the arteries and sinuses. Bilateral cataract surgery changes. IMPRESSION: 1. No acute abnormalities. 2. Bilateral hemispheric chronic laminar subdural hematomas without significant mass effect or midline shift. 3. Mild chronic microvascular ischemic changes of the white matter. The above finding was reported and acknowledged by Dr. Keane at 12:12 PM 08/03/2017. Signed by: DR Tu Arriaga M.D. on 08/03/2017 12:13 PM Dictated By: TU HORTON MD 1213 Transcribed By: ELIZABETH on 08/03/17 1213 COPY TO: BONNIE KEANE DO
--- OUTSIDE RECORDS SUMMARY | 2019-01-30 09:52 | XMS REPORT ---
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 Name Role Phone Magnolia Hamm Unavailable Allergies, [...] Instructions Start Date End Date Status Dosage Humalog ND 10315903989 100 UNIT/ML Subcutaneous Active not defined Gemfibrozil ND 51622401670 600 MG Orally Once a day Active 1 tablet Aspirin NDC 99825179720 81 MG Orally Once a day Active 1 tablet Lisinopril ND 68126909745 40 MG Orally Once a day Active 1 tablet Allopurinol ND 70476099711 300 MG Orally Once a day Active 1 tablet Lantus ND 0 35 UNITS Once a day Active Solution Lasix NDC 49140918328 40 mg Orally once a day Active 1 tablet Amlodipine Besylate [facility] 08167802558 10 MG Orally twice a day (bid) Active 1/2 half tablet Gabapentin [facility] 16943905039 100 MG Orally daily Active 1 tablet Potassium Chloride [facility] [address]-90 20 MEQ Orally BID Active 1 capsule Pantoprazole Sodium [facility] 49972724160 40 mg Orally Once a day Active 1 tablet Vital Signs Date/Time: January 05, 2018 BMI 27.62 Index Weight 166 lbs Height 65 in Temperature 98.1 F Cardiac Monitoring Heart Rate 90 /min Blood Pressure Diastolic 86 mm Hg Blood Pressure Systolic 140 mm Hg Results No Known Results Summary Purpose eClinicalWorks Submission
--- OUTSIDE RECORDS SUMMARY | 2019-01-30 09:52 | XMS REPORT ---
Author Author Abdulaziz Hamm Organization [employer] Address Unknown Phone Unavailable Care Team Providers Care Career Services Director Name Role Phone Abdulaziz Hamm CP Unavailable Allergies, Adverse Reactions, Alerts Substance Reaction [...] Instructions Start Date End Date Status Dosage Amlodipine Besylate ND 07418640142 10 MG Orally twice a day (bid) Active 1/2 half tablet Lasix ND 68380028159 40 mg Orally once a day Active 1 tablet Allopurinol ND 84119746572 300 MG Orally Once a day Active 1 tablet Lantus NDC 0 35 UNITS Once a day Active Solution Warfarin Sodium ND 02333317213 5 MG Orally Once a day Active 1/2 tabletMWF, 1 tablet TTHSS Lisinopril ND 80479613500 40 MG Orally Once a day Active 1 tablet Potassium Chloride [facility] [address]-65 20 MEQ Orally BID Active 1 capsule Pantoprazole Sodium [facility] 30257485529 40 mg Orally Once a day Active 1 tablet Gabapentin [facility] 95050856434 100 MG Orally daily Active 1 tablet Humalog [facility] 26275493549 100 UNIT/ML Subcutaneous Active not defined Gemfibrozil [facility] 84667782577 600 MG Orally Once a day Active 1 tablet Amlodipine Besylate [facility] 39341926804 10 MG Orally Once a day Active 1 tablet Vital Signs Date/Time: Jul 04, 2017 BMI 26.79 Index Weight 161 lbs Height 65 in Temperature 98.6 F Cardiac Monitoring Heart Rate 92 /min Blood Pressure Diastolic 90 mm Hg Blood Pressure Systolic 142 mm Hg Results No Known Results Summary Purpose [employer] Submission
[2019-01-30 14:45] VITALS: BP 159/91
--- NOTE | 2019-02-22 16:24 | Operative Report ---
DATE OF PROCEDURE: 01/30/2019 SURGEON: Quentin Rosenbaum MD PREOPERATIVE DIAGNOSIS: Recurrent urinary tract infections. POSTOPERATIVE DIAGNOSIS: Recurrent urinary tract infections. OPERATIVE PROCEDURES: 1. Cystoscopy. 2. Bladder biopsy. ANESTHESIA: General anesthesia. ESTIMATED BLOOD LOSS: Minimal. INDICATIONS: Ms. Gricel Calderon is an 88-year-old woman with a history of recurrent urinary tract infections and recent hospitalization for sepsis. She now presents for definitive surgical management of this problem. PROCEDURE IN DETAIL: The patient was brought in the operative room, placed in supine position. After initiation of general anesthesia, was placed in dorsal lithotomy position and prepped and draped in the usual sterile fashion. Cystourethroscopy was performed using 22-Belgian cystoscope. Anterior and posterior urethra noted to be normal. 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 There were no other significant mucosal lesions identified. Even though she had recently voided her bladder was noted to have a volume greater than 100 mL consistent with moderate postvoid residual. Using the cold cup bladder biopsy forceps, biopsies were obtained from areas of erythema and these were sent to pathology for microscopic analysis. The Bugbee electrode was used to fulgurate these both sites, so there was no bleeding noted at the conclusion of the procedure. The bladder was then drained in its entirety and the patient was returned to supine position. Anesthesia was reversed and the patient was transferred to a bed and taken to the postanesthesia care unit in good condition. Of note, the needle and instrument count were correct at the conclusion of the case. Quentin Rosenbaum MD HLW/MODL /[id number]
== END | disposition home or self-care (01) ==
LOC: OR 09:39
PROVIDERS: ATTEND Urology
DX: N30.80 Other cystitis without hematuria (principal); E11.22 Type 2 diabetes mellitus with diabetic chronic kidney disease; I12.9 Hypertensive chronic kidney disease with stage 1 through stage 4 chronic kidney disease, or unspecified chronic kidney disease; N18.9 Chronic kidney disease, unspecified; H91.90 Unspecified hearing loss, unspecified ear; R06.09 Other forms of dyspnea; I48.91 Unspecified atrial fibrillation; K44.9 Diaphragmatic hernia without obstruction or gangrene; M10.9 Gout, unspecified; Z88.1 Allergy status to other antibiotic agents; Z88.0 Allergy status to penicillin; Z88.8 Allergy status to other drugs, medicaments and biological substances; Z01.818 Encounter for other preprocedural examination; Z79.4 Long term (current) use of insulin; Z79.82 Long term (current) use of aspirin; Z85.3 Personal history of malignant neoplasm of breast
CPT/HCPCS: 36415; 52214; 71046; 82948; 88305; J1100; J1956; J2001; J2405; J2704

== ENCOUNTER → 2019-05-23 | Outpatient (CLI) | payer MEDICARE ==
[~2019-05-23] MED LIST changes: -DEXAMETHASONE SOD PHOS INJ 4 MG/ML VIAL ONE; -LABETALOL HCL 0 ML ONE; -LEVOFLOXACIN 500MG/D5W 100ML 100 ML IV ONE; -LIDOCAINE HCL 2% LOCAL INJ 5 ML SDV VIAL INJ ONE; -ONDANSETRON HCL INJ 2MG/ML 2ML 2 MG/ML VIAL ONE; -PROPOFOL IV EMULSION 10 MG/ML 20 ML VIAL ONE; -SEVOFLURANE INHAL SOLN 250 ML PEN BTL ONE
--- NOTE | 2019-05-23 12:53 | Diagnostic Imaging Report ---
Barium enema, double-contrast. History: History of polyps. 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 A small amount of barium was introduced into the colon via the rectal tube. The rectum and sigmoid partially filled with contrast. At that point, the patient expelled the balloon tip and declined further attempts at imaging. Fluoro time: 0.07 min. Dose: 2.5 mGy (AJ) IMPRESSION: Patient unable to tolerate barium enema. Exam not completed. Signed by: Moises Mills on 05/23/2019 12:50 PM
== END ==
LOC: DX 08:18
PROVIDERS: ATTEND Internal Medicine Gastroenterology
DX: E11.9 Type 2 diabetes mellitus without complications (principal); I10 Essential (primary) hypertension; E66.3 Overweight; Z71.3 Dietary counseling and surveillance; Z86.010 Personal history of colon polyps
CPT/HCPCS: 74280

== ENCOUNTER → 2019-11-30 | Outpatient (CLI) | payer MEDICARE ==
--- NOTE | 2019-11-30 13:41 | Diagnostic Imaging Report ---
EXAMINATION: HIP RIGHT 2-3 VW (+/- PELVIS) INDICATION: Hip pain COMPARISON: None FINDINGS: AP and frog-leg views of the right hip demonstrate no acute fracture or dislocation. Alignment is anatomic. Mild right hip joint degenerative changes. Phleboliths in the pelvis. Scattered atherosclerotic arterial calcifications. IMPRESSION: No acute osseous injury. Signed by: Elías Ontiveros MD on 11/30/2019 1:38 PM
== END ==
LOC: RAD 12:32
PROVIDERS: ATTEND Family Medicine
DX: M25.551 Pain in right hip (principal)

== ENCOUNTER 2020-01-16 02:33 | Inpatient (IN) | payer MEDICARE, OTHER ==
[2020-01-16] VITALS (7 sets, daily range): BP systolic 113–166; BP diastolic 82–93
[~2020-01-16] VITALS: Ht 165.1 cm; Wt 81.8 kg
[2020-01-16] MEDS ORDERED: SODIUM CHLORIDE 0.9% 1000ML 1,000 ML IV STA (02:35)
[2020-01-16 03:42] LABS: BASOPHILS # (AUTO) 0.1 (0.0-0.1); BASOPHILS % 0.3 % (0.0-1.0); EOSINOPHILS # (AUTO) 0.1 (0.0-0.4); EOSINOPHILS % 0.3 % (0.0-6.0); HEMATOCRIT 40.6 % (34.2-44.1); HEMOGLOBIN 12.9 g/dL (12.0-16.0); LYMPHOCYTES # (AUTO) 0.7 (1.0-3.2); LYMPHOCYTES % 3.9 % (18.0-39.1); MEAN CORPUSCULAR HEMOGLOBIN 28.4 pg (28-32); MEAN CORPUSCULAR HGB CONC 31.8 g/dL (31-35); MEAN CORPUSCULAR VOLUME 89.2 fL (81-99); MONOCYTES # (AUTO) 0.9 (0.2-0.8); MONOCYTES % 4.9 % (4.4-11.3); NEUTROPHILS # (AUTO) 16.9 (2.1-6.9); NEUTROPHILS % 90.1 % (38.7-80.0); PLATELET COUNT 304 x10e3/uL (140-360); RED BLOOD COUNT 4.55 x10e6/uL (3.6-5.1)
[2020-01-16 03:52] LABS: ALBUMIN 3.4 g/dL (3.5-5.0); ANION GAP 19.7 mmol/L (8-16); CALCIUM 9.6 mg/dL (8.4-10.2); CREATININE, SERUM 1.78 mg/dL (0.57-1.11); POTASSIUM 3.7 mmol/L (3.5-5.1)
[2020-01-16 03:59] LABS: CREATINE KINASE MB 1.2 ng/mL (0-5.0)
--- NOTE | 2020-01-16 05:14 | Diagnostic Imaging Report ---
EXAM: CT Abdomen and Pelvis WITHOUT contrast INDICATION: Rectal bleeding COMPARISON: None. TECHNIQUE: Abdomen and pelvis were scanned utilizing a multidetector helical scanner from the lung base to the pubic symphysis without administration of IV contrast. Absence of intravenous contrast decreases sensitivity for detection of focal lesions and vascular pathology. Coronal and sagittal reformations were obtained. Routine protocol was performed. IV CONTRAST: None ORAL CONTRAST: None COMPLICATIONS: None RADIATION DOSE: Total DLP: 384 mGy*cm Estimated effective dose: (DLP x 0.015 x size factor) mSv CTDIvol has been reviewed. It is below the limits set by the Radiation Protocol Committee (RPC). Dose modulation, iterative reconstruction, and/or weight based adjustment of the mA/kV was utilized to reduce the radiation dose to as low as reasonably achievable. FINDINGS: LINES and TUBES: None. LOWER THORAX: 4 mm left basilar nodule. Moderate cardiomegaly. Mitral and aortic valve calcifications. HEPATOBILIARY: Several benign calcified hepatic granulomata. There are multiple scattered too small to characterize hypodensities in the liver, likely benign. No biliary ductal dilation. GALLBLADDER: Small stones. No wall thickening. SPLEEN: No splenomegaly. Several benign calcified splenic granulomata. PANCREAS: No focal masses or ductal dilatation. ADRENALS: No adrenal nodules KIDNEYS/URETERS: No hydronephrosis. Multiple bilateral renal cysts without complex features. Nonobstructive punctate renal I. No stones. GI TRACT: Smooth thickening and mild pericolonic fat stranding of the distal descending and sigmoid colon. There are diverticula within the colon No evidence of appendicitis. PELVIC ORGANS/BLADDER: Hysterectomy. No adnexal masses. Urinary bladder unremarkable. LYMPH NODES: No lymphadenopathy. VESSELS: Arterial vascular calcifications.. PERITONEUM / RETROPERITONEUM: No free air or fluid. BONES: Osseous demineralization. Degenerative changes. Low convex lumbar curvature. SOFT TISSUES: A 3.2 cm right perianal round soft tissue density . Focal nodular soft tissue density in the right breast IMPRESSION: 1. Edematous/inflammatory changes of the distal descending and sigmoid colon infection/inflammation such as diverticulitis, although this also could be due to ischemia. No direct evidence of bowel infarction. Arterial vascular calcifications in the infrarenal abdominal aorta. 2. A 3.2 cm right perianal round soft tissue density may represent a mass or large hemorrhage. Correlate with physical exam. 3. Focal nodular soft tissue density in the right breast, recommend dedicated mammographic evaluation. 4. Moderate cardiomegaly. Signed by: Neil Madrigal DO on 01/16/2020 5:10 AM
--- NOTE | 2020-01-16 05:33 | Emergency Department Note ---
History of Present Illnes History of Present Illness Chief Complaint: Abdominal Complaints History of Present Illness This is a 89 year old female presents to the ED for generalized weakness with rectal bleeding that was noted in the patient's diaper. . 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 Any updates have been documented here. 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 knee replacements cataracts heart catheterization Social History Smoking Cessation: Never Smoker Counseling Performed: Yes Any Illegal Drug Use: No Other Last Tetanus: Up to date Review of Systems Review of Systems Constitutional: Reports weakness EENTM: Reports no symptoms Cardiovascular: Reports no symptoms Respiratory: Reports no symptoms Gastrointestinal: Reports other (rectal bleeding) Genitourinary: Reports no symptoms Musculoskeletal: Reports no symptoms Integumentary: Reports no symptoms Neurological: Reports no symptoms Psychological: Reports no symptoms Endocrine: Reports no symptoms Hematological/Lymphatic: Reports no symptoms Physical Exam Related Data Allergies: Coded Allergies: dabigatran etexilate mesylate (Verified Allergy, Severe, COLON HEMMORHAGE, 10/03/12) sulfamethoxazole (Verified Allergy, Mild, kidney failure, 03/17/11) trimethoprim (Verified Allergy, Mild, kidney failure, 03/17/11) amoxicillin (Verified Allergy, Unknown, itching, 01/16/20) azathioprine (Verified Allergy, Unknown, severe anemia, 01/16/20) azathioprine sodium (Verified Allergy, Unknown, severe anemia, 01/16/20) simvastatin (Verified Allergy, Unknown, 01/16/20) vancomycin (Verified Allergy, Unknown, itching, 01/16/20) Uncoded Allergies: VASELINE (Allergy, Unknown, infection, 01/16/20) Triage Vital Signs Vital Signs Date Time Temp Pulse Resp B/P (MAP) Pulse Ox O2 Delivery O2 Flow Rate FiO2 01/16/20 02:33 98.7 104 20 141/85 97 Physical Exam CONSTITUTIONAL Constitutional: Present cachectic, Present ill appearing HENT HENT: Present normocephalic, Present atraumatic, Present oropharynx clear/moist, Present nose normal HENT L/R: Present left ext ear normal, Present right ext ear normal EYES Eyes: Reports PERRL, Reports conjunctivae normal NECK Neck: Present ROM normal PULMONARY Pulmonary: Present effort normal, Present breath sounds normal CARDIOVASCULAR Cardiovascular: Present regular rhythm, Present heart sounds normal, Present capillary refill normal, Present normal rate GASTROINTESTINAL Abdominal: Present soft, Present tender, Present other (external non-thrombosed hemorrhoid) GENITOURINARY Genitourinary: Present exam deferred SKIN Skin: Present warm, Present dry MUSCULOSKELETAL Musculoskeletal: Present ROM normal NEUROLOGICAL Neurological: Present alert, Present oriented x 3, Present no gross motor or sensory deficits PSYCHOLOGICAL Psychological: Present mood/affect normal, Present judgement normal Results Laboratory Result Diagram: 01/16/2030901/16/20 0310 Laboratory Laboratory Tests Test 01/16/20 03:10 White Blood Count 18.81 x10e3/uL (4.8-10.8) Red Blood Count 4.55 x10e6/uL (3.6-5.1) Hemoglobin 12.9 g/dL (12.0-16.0) Hematocrit 40.6 % (34.2-44.1) Mean Corpuscular Volume 89.2 fL (81-99) Mean Corpuscular Hemoglobin 28.4 pg (28-32) Mean Corpuscular Hemoglobin Concent 31.8 g/dL (31-35) Red Cell Distribution Width 17.0 % (11.7-14.4) Platelet Count 304 x10e3/uL (140-360) Neutrophils (%) (Auto) 90.1 % (38.7-80.0) Lymphocytes (%) (Auto) 3.9 % (18.0-39.1) Monocytes (%) (Auto) 4.9 % (4.4-11.3) Eosinophils (%) (Auto) 0.3 % (0.0-6.0) Basophils (%) (Auto) 0.3 % (0.0-1.0) Neutrophils # (Auto) 16.9 (2.1-6.9) Lymphocytes # (Auto) 0.7 (1.0-3.2) Monocytes # (Auto) 0.9 (0.2-0.8) Eosinophils # (Auto) 0.1 (0.0-0.4) Basophils # (Auto) 0.1 (0.0-0.1) Absolute Immature Granulocyte (auto 0.10 x10e3/uL (0-0.1) Activated Partial Thromboplast Time 31.0 seconds (23.8-35.5) Sodium Level 141 mmol/L (136-145) Potassium Level 3.7 mmol/L (3.5-5.1) Chloride Level 101 mmol/L (98-107) Carbon Dioxide Level 24 mmol/L (22-29) Anion Gap 19.7 mmol/L (8-16) Blood Urea Nitrogen 31 mg/dL (7-26) Creatinine 1.78 mg/dL (0.57-1.11) Estimat Glomerular Filtration Rate 27 ML/MIN (60-) BUN/Creatinine Ratio 17 (6-25) Glucose Level 190 mg/dL (74-118) Calcium Level 9.6 mg/dL (8.4-10.2) Total Bilirubin 0.5 mg/dL (0.2-1.2) Aspartate Amino Transf (AST/SGOT) 14 IU/L (5-34) Alanine Aminotransferase (ALT/SGPT) 12 IU/L (0-55) Alkaline Phosphatase 94 IU/L (40-150) Creatine Kinase 83 IU/L (29-168) Creatine Kinase MB 1.20 ng/mL (0-5.0) Troponin I 0.047 ng/mL (0-0.300) B-Type Natriuretic Peptide 187.1 pg/mL (0-100) Total Protein 6.9 g/dL (6.5-8.1) Albumin 3.4 g/dL (3.5-5.0) Globulin 3.5 g/dL (2.3-3.5) Albumin/Globulin Ratio 1.0 (0.8-2.0) Lipase 14 U/L (8-78) Imaging Imaging results reviewed: Yes Impressions [facility] [address] [place], [place] [id number] Patient Name: JUSTIN MIRANDA MR #: [id number] : 1930 Age/Sex: 89/F Req #: [id number] [facility] Physician: Ordered by: BROOKE GOODWIN DO Report #: [id number] Location: ER Room/Bed: Procedure: CT/CT ABDOMEN/PELVIS WO Exam Date: 01/16/20 Exam Time: 0400 REPORT STATUS: Signed EXAM: CT Abdomen and Pelvis WITHOUT contrast INDICATION: Rectal bleeding COMPARISON: None. TECHNIQUE: Abdomen and pelvis were scanned utilizing a multidetector helical scanner from the lung base to the pubic symphysis without administration of IV contrast. Absence of intravenous contrast decreases sensitivity for detection of focal lesions and vascular pathology. Coronal and sagittal reformations were obtained. Routine protocol was performed. IV CONTRAST: None ORAL CONTRAST: None COMPLICATIONS: None RADIATION DOSE: Total DLP: 384 mGy*cm Estimated effective dose: (DLP x 0.015 x size factor) mSv CTDIvol has been reviewed. It is below the limits set by the Radiation Protocol Committee (RPC). Dose modulation, iterative reconstruction, and/or weight based adjustment of the mA/kV was utilized to reduce the radiation dose to as low as reasonably achievable. FINDINGS: LINES and TUBES: None. LOWER THORAX: 4 mm left basilar nodule. Moderate cardiomegaly. Mitral and aortic valve calcifications. HEPATOBILIARY: Several benign calcified hepatic granulomata. There are multiple scattered too small to characterize hypodensities in the liver, likely benign. No biliary ductal dilation. GALLBLADDER: Small stones. No wall thickening. SPLEEN: No splenomegaly. Several benign calcified splenic granulomata. PANCREAS: No focal masses or ductal dilatation. ADRENALS: No adrenal nodules KIDNEYS/URETERS: No hydronephrosis. Multiple bilateral renal cysts without complex features. Nonobstructive punctate renal I. No stones. GI TRACT: Smooth thickening and mild pericolonic fat stranding of the distal descending and sigmoid colon. There are diverticula within the colon No evidence of appendicitis. PELVIC ORGANS/BLADDER: Hysterectomy. No adnexal masses. Urinary bladder unremarkable. LYMPH NODES: No lymphadenopathy. VESSELS: Arterial vascular calcifications.. PERITONEUM / RETROPERITONEUM: No free air or fluid. BONES: Osseous demineralization. Degenerative changes. Low convex lumbar curvature. SOFT TISSUES: A 3.2 cm right perianal round soft tissue density . Focal nodular soft tissue density in the right breast IMPRESSION: 1. Edematous/inflammatory changes of the distal descending and sigmoid colon infection/inflammation such as diverticulitis, although this also could be due to ischemia. No direct evidence of bowel infarction. Arterial vascular calcifications in the infrarenal abdominal aorta. 2. A 3.2 cm right perianal round soft tissue density may represent a mass or large hemorrhage. Correlate with physical exam. 3. Focal nodular soft tissue density in the right breast, recommend dedicated mammographic evaluation. 4. Moderate cardiomegaly. Signed by: Neil Madrigal DO on 01/16/2020 5:10 AM Dictated By: NEIL MADRIGAL DO 0510 Transcribed By: ELIZABETH on 01/16/20 0510 COPY TO: BROOKE GOODWIN DO~ Assessment & Plan Medical Decision Making MDM Patient with GI bleeding since this AM with weakness. Patient with noted elevated WBC and source of infection appears to be the diverticulitis noted on CTS. Green sheet initiated at 0533. patient admitted to the service of Dr Alfredo stinson with consultation to Dr Gabe Stinson (GI). Assessment & Plan Final Impression: (1) Diverticulitis (2) External hemorrhoid (3) Abnormal renal function Depart Disposition: ADMITTED Last Vital Signs Date Time Temp Pulse Resp B/P (MAP) Pulse Ox O2 Delivery O2 Flow Rate FiO2 01/16/20 02:33 98.7 104 20 141/85 97 Home Meds Reported Medications Multivitamin (MULTI-VITAMIN DAILY) 1 Each Tablet, 1 TAB PO DAILY 01/26/19 Insulin Detemir (LEVEMIR) 100 Unit/1 Ml Vial, 35 U SC HS 01/26/19 Insulin Lispro (HUMALOG) 100 Unit/1 Ml Cartridge, SC ACHS 01/26/19 Gabapentin (GABAPENTIN) 100 Mg Capsule, 100 MG PO BID 01/26/19 Aspirin (ASPIR 81) 81 Mg Tablet.dr, 81 MG PO DAILY 01/26/19 Nitrofurantoin Macrocrystal (NITROFURANTOIN) 100 Mg Capsule, 50 MG PO DAILY 01/26/19 Diltiazem Hcl (DILTIAZEM 24HR CD) 120 Mg Cap.er.24h, 120 MG PO DAILY 01/26/19 Gemfibrozil (LOPID) 600 Mg Tablet, 600 MG PO HS, TAB 08/26/14 Potassium Chloride (KLOR-CON M20) 20 Meq Tabcr, 20 MEQ PO DAILY 10/03/12 Pantoprazole Sodium* (PROTONIX) 40 Mg Tablet.dr, 40 MG PO DAILY 10/03/12 Lisinopril (LISINOPRIL) 5 Mg Tablet, 40 MG PO DAILY 10/03/12 Furosemide (LASIX) 40 Mg Tablet, 80 MG PO DAILY, 0 Refills 10/03/12 Allopurinol (ALLOPURINOL) 300 Mg Tablet, 300 MG PO DAILY 10/03/12 Medications in the ED Sodium Chloride 1,000 ml @ 0 mls/hr Q0M STAT IV ; Start 01/16/20 at 02:35; Stop 01/16/20 at 02:37; Status BROOKE MEJÍA DO Jan 16, 2020 05:33
[2020-01-16] MEDS ORDERED: ONDANSETRON HCL INJ 2MG/ML 2ML 2 MG/ML VIAL IV PRN (06:00)
[2020-01-16] MEDS ORDERED: MORPHINE SULFATE 2 MG/ML SYR 1ML IV PRN (06:00)
[2020-01-16] MEDS: CLINDAMYCIN 300MG 50 ML IV SCH ×3 (06:25→17:51)
[2020-01-16] MEDS: CIPROFLOXACIN 400 MG/D5W 200ML 200 ML IV SCH ×2 (06:59→18:24)
--- NOTE | 2020-01-16 07:45 | NUR ---
Received patient from ER via stretcher. Alert and oriented x4, denies pain at this time. IV in place to right arm, patent. Oriented to room, call light, bed rails, bathroom, and visiting policy. Verbalized understanding.
[2020-01-16] MEDS: SODIUM CHLORIDE 0.9% 1000ML 1,000 ML IV SCH ×2 (09:47→14:08)
[2020-01-16 10:58] LABS: CREATINE KINASE MB 0.9 ng/mL (0-5.0)
--- NOTE | 2020-01-16 12:05 | NUR ---
Called Dr. Alfredo Stinson answering service regarding consult for rectal bleeding. Spoke to Mikala. notified of consult.
[2020-01-16] MEDS: GABAPENTIN 100 MG CAP PO SCH (17:51)
[2020-01-16 19:07] LABS: CREATINE KINASE MB 0.8 ng/mL (0-5.0)
[2020-01-16] MEDS: GEMFIBROZIL 600 MG TAB PO SCH (21:54)
[2020-01-16] MEDS: LISINOPRIL 20 MG TAB PO SCH (21:54)
[2020-01-17] VITALS (8 sets, daily range): BP systolic 120–162; BP diastolic 68–110
[2020-01-17 05:54] LABS: BASOPHILS # (AUTO) 0.1 (0.0-0.1); BASOPHILS % 0.3 % (0.0-1.0); EOSINOPHILS # (AUTO) 0.2 (0.0-0.4); HEMATOCRIT 34.4 % (34.2-44.1); LYMPHOCYTES # (AUTO) 2.1 (1.0-3.2); LYMPHOCYTES % 14.2 % (18.0-39.1); MEAN CORPUSCULAR HEMOGLOBIN 29.5 pg (28-32); MEAN CORPUSCULAR VOLUME 92.2 fL (81-99); MONOCYTES % 6.8 % (4.4-11.3); NEUTROPHILS # (AUTO) 11.5 (2.1-6.9); NEUTROPHILS % 77.2 % (38.7-80.0); PLATELET COUNT 212 x10e3/uL (140-360); RED BLOOD COUNT 3.73 x10e6/uL (3.6-5.1)
[2020-01-17 05:55] LABS: INR 1.14; PROTHROMBIN TIME 15.3 seconds (11.9-14.5)
[2020-01-17] MEDS: SODIUM CHLORIDE 0.9% 1000ML 1,000 ML IV SCH ×5 (06:00→22:00)
[2020-01-17 06:31] LABS: ALBUMIN 2.5 g/dL (3.5-5.0); ALBUMIN/GLOBULIN RATIO 0.9 (0.8-2.0); ANION GAP 13.4 mmol/L (8-16); CALCIUM 8.4 mg/dL (8.4-10.2); CREATININE, SERUM 1.01 mg/dL (0.57-1.11); POTASSIUM 3.4 mmol/L (3.5-5.1)
--- NOTE | 2020-01-17 07:05 | NUR ---
RCD PT AT BED PT IS ALERT AND ORIENTED PT RESTING ON BED IV PATENT BED LOW AND LOCKED CALL LIGHT IN REACH
[2020-01-17] MEDS: PANTOPRAZOLE SOD 40 MG TABEC PO SCH (07:30)
[2020-01-17] MEDS: LISINOPRIL 20 MG TAB PO SCH (09:00)
[2020-01-17] MEDS: CLINDAMYCIN 300MG 50 ML IV SCH ×2 (09:00→16:32)
[2020-01-17] MEDS: DILTIAZEM HCL ER 120 MG CAP PO SCH (09:00)
[2020-01-17] MEDS: CIPROFLOXACIN 400 MG/D5W 200ML 200 ML IV SCH ×2 (09:00→16:32)
[2020-01-17] MEDS: NITROFURANTOIN 50 MG CAP PO SCH (09:00)
[2020-01-17] MEDS ORDERED: LISINOPRIL 2.5 MG TAB PO SCH (09:00)
[2020-01-17] MEDS: FUROSEMIDE 40 MG TAB PO SCH (09:00)
[2020-01-17] MEDS: POTASSIUM CHLORIDE 20 MEQ TAB CR PO SCH (09:00)
[2020-01-17] MEDS: GABAPENTIN 100 MG CAP PO SCH ×2 (09:00→16:32)
[2020-01-17] MEDS ORDERED: NITROFURANTOIN MACROCRYSTALS 100 MG CAP PO SCH (09:00)
[2020-01-17] MEDS: ASPIRIN 81 MG CHEW TAB PO SCH (09:00)
[2020-01-17] MEDS: MULTIVITAMINS/MINERALS TAB PO SCH (09:00)
[2020-01-17] MEDS: ALLOPURINOL 300 MG TAB PO SCH (09:00)
--- NOTE | 2020-01-17 18:47 | NUR ---
PT RESTING ON BED BED SIDE REPORT GIVEN TO ONCOMING NURSE
[2020-01-17] MEDS: GEMFIBROZIL 600 MG TAB PO SCH (21:29)
[2020-01-18] VITALS (8 sets, daily range): BP systolic 143–160; BP diastolic 83–96
[2020-01-18] MEDS: SODIUM CHLORIDE 0.9% 1000ML 1,000 ML IV SCH ×2 (04:30→14:00)
[2020-01-18 05:50] LABS: BASOPHILS # (AUTO) 0.1 (0.0-0.1); BASOPHILS % 0.5 % (0.0-1.0); EOSINOPHILS # (AUTO) 0.4 (0.0-0.4); EOSINOPHILS % 3.1 % (0.0-6.0); LYMPHOCYTES # (AUTO) 2.1 (1.0-3.2); LYMPHOCYTES % 16.1 % (18.0-39.1); MEAN CORPUSCULAR HEMOGLOBIN 29.2 pg (28-32); MEAN CORPUSCULAR HGB CONC 31.4 g/dL (31-35); MEAN CORPUSCULAR VOLUME 92.8 fL (81-99); MONOCYTES % 8.2 % (4.4-11.3); NEUTROPHILS # (AUTO) 9.1 (2.1-6.9); NEUTROPHILS % 71.6 % (38.7-80.0); PLATELET COUNT 234 x10e3/uL (140-360); RED BLOOD COUNT 3.77 x10e6/uL (3.6-5.1); RED CELL DISTRIBUTION WIDTH 16.9 % (11.7-14.4)
[2020-01-18 05:58] LABS: ANION GAP 12.2 mmol/L (8-16); CALCIUM 8.3 mg/dL (8.4-10.2); CREATININE, SERUM 1.13 mg/dL (0.57-1.11); POTASSIUM 3.2 mmol/L (3.5-5.1)
--- NOTE | 2020-01-18 07:00 | NUR ---
RCD PT AT BED PT IS ALERT AND ORIENTED PT RESTING ON BED IV PATENT BED LOW AND LOCKED CALL LIGHT IN REACH
[2020-01-18] MEDS: PANTOPRAZOLE SOD 40 MG TABEC PO SCH (07:30)
[2020-01-18] MEDS: POTASSIUM CHLORIDE 20 MEQ TAB CR PO SCH (09:00)
[2020-01-18] MEDS: NITROFURANTOIN 50 MG CAP PO SCH (09:00)
[2020-01-18] MEDS: GABAPENTIN 100 MG CAP PO SCH ×2 (09:00→17:00)
[2020-01-18] MEDS: LISINOPRIL 20 MG TAB PO SCH ×2 (09:00→21:16)
[2020-01-18] MEDS: DILTIAZEM HCL ER 120 MG CAP PO SCH (09:00)
[2020-01-18] MEDS: CLINDAMYCIN 300MG 50 ML IV SCH ×2 (09:00→17:00)
[2020-01-18] MEDS: FUROSEMIDE 40 MG TAB PO SCH (09:00)
[2020-01-18] MEDS: CIPROFLOXACIN 400 MG/D5W 200ML 200 ML IV SCH ×2 (09:00→17:00)
[2020-01-18] MEDS: ASPIRIN 81 MG CHEW TAB PO SCH (09:00)
[2020-01-18] MEDS: ALLOPURINOL 300 MG TAB PO SCH (09:00)
[2020-01-18] MEDS: MULTIVITAMINS/MINERALS TAB PO SCH (09:00)
[2020-01-18] MEDS ORDERED: DIATRIZOATE MEGL/DIATRIZOA SOD 30 ML BTL PO ONE (16:15)
[2020-01-18] MEDS ORDERED: POTASSIUM CHLORIDE 10MEQ EA PO ONE (16:20)
--- NOTE | 2020-01-18 18:30 | NUR ---
PT WENT TO PROCEDURE IN SAFE CONDITION
--- NOTE | 2020-01-18 18:41 | NUR ---
PT RESTING ON BED BED SIDE REPORT GIVEN TO ONCOMING NURSE
--- NOTE | 2020-01-18 19:47 | Diagnostic Imaging Report ---
EXAMINATION: CT of the abdomen and pelvis without contrast. TECHNIQUE: Spiral CT images of the abdomen and pelvis were performed from the lung bases to the lesser trochanters. No intravenous contrast was given per physician's request. Oral dilute Gastrografin was given.. Coronal and sagittal reformatted images were obtained. COMPARISON: CT abdomen and pelvis without contrast 01/16/2020 CLINICAL HISTORY:Abdominal pain, diverticulitis DISCUSSION: ABSENCE OF INTRAVENOUS CONTRAST DECREASES SENSITIVITY FOR DETECTION OF FOCAL LESIONS AND VASCULAR PATHOLOGY. ABDOMEN/PELVIS: LOWER THORAX: Stable 4 mm pulmonary nodule in the left lower lobe. Stable moderate cardiomegaly. Atherosclerotic calcification of the coronary arteries, mitral and aortic valves. HEPATOBILIARY: Calcified hepatic granulomata. Stable hypodense lesions in the left hepatic lobe, with the 2 largest measuring 8 and 10 mm and fluid density, consistent with simple cysts. No intra or extrahepatic biliary ductal dilation. GALLBLADDER: Layering stones in the dependent portion of the gallbladder lumen. No wall thickening. SPLEEN: No splenomegaly. Innumerable calcified splenic granulomata PANCREAS: No focal masses or ductal dilatation. ADRENALS: No adrenal nodules. KIDNEYS/URETERS: No hydronephrosis. Stable 4 mm nonobstructing calculus in the left interpolar region (series 2, image 36). Stable punctate nonobstructing calculi in the left inferior pole (series 2, image 39), right inferior pole (series 2, image 37). Stable mostly exophytic 4.0 cm fluid density simple cyst in the left lateral interpolar region (series 2, image 36). Stable minimally complex 3.0 x 2.5 cm mostly exophytic fluid density lesion with single thin ( less than 2 mm) partly calcified septation in the right temporal region (series 2, image 33) . PELVIC ORGANS/BLADDER: Bladder is moderately to markedly distended. No adnexal masses. PERITONEUM/RETROPERITONEUM: Trace fluid the pelvic cul-de-sac (best visualized on sagittal image 55). LYMPH NODES: No intra-abdominal,retroperitoneal, pelvic or inguinal lymphadenopathy. VESSELS: Atherosclerotic calcification of the abdominal aorta and iliac vessels GI TRACT: Distal descending and sigmoid colon diverticulosis. Moderate wall thickening involving the proximal sigmoid colon (series 2, images 47-58), with mild surrounding stranding. No foci of extraluminal air or adjacent well-defined fluid collections. Rest of the bowel shows no wall thickening. No dilation or evidence of obstruction. 2.8 cm structure with air fluid level between the pancreatic head and the second portion of the duodenum, consistent with a duodenal diverticulum. Stable 3.2 cm perianal soft tissue density (series 2, image 81). BONES AND SOFT TISSUES: No aggressive lytic or focal sclerotic lesion. Multilevel degenerative discs in the lumbosacral spine, worse at L2-L3, with associated leftward curvature. Facet hypertrophy L4-L5 and L5-S1. Stable focal soft tissue density in the right breast (series 2, image 1). IMPRESSION: 1. Findings likely represent sigmoid diverticulitis in the appropriate clinical setting. No perforation or adjacent abscess formation. 2. Stable indeterminate 3.2 cm right perianal soft tissue density, which may represent mass or hematoma.. Correlate with physical exam. 3. Stable focal soft tissue density in the right breast. This may reflect asymmetric breast tissue or a breast mass. Correlate with mammography. 4. Cholelithiasis, without CT evidence of cholecystitis. Signed by: Dr. Tr Seaman M.D. on 01/18/2020 7:43 PM
--- NOTE | 2020-01-18 19:55 | NUR ---
Patient received sitting up in bed. AAO x 4. Patient had no complaints of pain. Respirations even and non-labored. Telemetry in place. Safety measures implemented. Patient instructed to call for assistance when needed. Call light within reach.
[2020-01-18] MEDS: GEMFIBROZIL 600 MG TAB PO SCH (21:12)
[2020-01-19] VITALS (8 sets, daily range): BP systolic 136–157; BP diastolic 75–97
[2020-01-19] MEDS: SODIUM CHLORIDE 0.9% 1000ML 1,000 ML IV SCH ×2 (01:37→06:16)
[2020-01-19 06:19] LABS: BASOPHILS % 0.4 % (0.0-1.0); EOSINOPHILS # (AUTO) 0.4 (0.0-0.4); EOSINOPHILS % 4.7 % (0.0-6.0); HEMATOCRIT 35.9 % (34.2-44.1); HEMOGLOBIN 11.4 g/dL (12.0-16.0); LYMPHOCYTES # (AUTO) 1.5 (1.0-3.2); LYMPHOCYTES % 17.1 % (18.0-39.1); MEAN CORPUSCULAR HEMOGLOBIN 29.3 pg (28-32); MEAN CORPUSCULAR HGB CONC 31.8 g/dL (31-35); MEAN CORPUSCULAR VOLUME 92.3 fL (81-99); MONOCYTES # (AUTO) 0.9 (0.2-0.8); MONOCYTES % 9.6 % (4.4-11.3); NEUTROPHILS # (AUTO) 6.1 (2.1-6.9); NEUTROPHILS % 67.6 % (38.7-80.0); PLATELET COUNT 252 x10e3/uL (140-360); RED BLOOD COUNT 3.89 x10e6/uL (3.6-5.1); RED CELL DISTRIBUTION WIDTH 16.9 % (11.7-14.4)
[2020-01-19 06:43] LABS: ALBUMIN 2.8 g/dL (3.5-5.0); ALBUMIN/GLOBULIN RATIO 0.9 (0.8-2.0); ANION GAP 12.5 mmol/L (8-16); CALCIUM 8.8 mg/dL (8.4-10.2); CREATININE, SERUM 1.02 mg/dL (0.57-1.11); POTASSIUM 3.5 mmol/L (3.5-5.1)
--- NOTE | 2020-01-19 06:44 | NUR ---
Walking rounds done. Patient resting comfortably. Bed-side shift report given to oncoming nurse regarding patient's status.
--- NOTE | 2020-01-19 07:05 | NUR ---
RCD PT AT BED PT IS ALERT AND ORIENTED PT RESTING ON BED IV PATENT BED LOW AND LOCKED CALL LIGHT IN REACH
[2020-01-19] MEDS: PANTOPRAZOLE SOD 40 MG TABEC PO SCH (07:30)
[2020-01-19] MEDS: CIPROFLOXACIN 400 MG/D5W 200ML 200 ML IV SCH ×2 (09:00→17:00)
[2020-01-19] MEDS: DILTIAZEM HCL ER 120 MG CAP PO SCH (09:00)
[2020-01-19] MEDS ORDERED: POTASSIUM CHLORIDE 10MEQ EA PO ONE (09:00)
[2020-01-19] MEDS: GABAPENTIN 100 MG CAP PO SCH ×2 (09:00→17:00)
[2020-01-19] MEDS: ASPIRIN 81 MG CHEW TAB PO SCH (09:00)
[2020-01-19] MEDS: FUROSEMIDE 40 MG TAB PO SCH (09:00)
[2020-01-19] MEDS: LISINOPRIL 20 MG TAB PO SCH ×2 (09:00→20:54)
[2020-01-19] MEDS: POTASSIUM CHLORIDE 20 MEQ TAB CR PO SCH (09:00)
[2020-01-19] MEDS: CLINDAMYCIN 300MG 50 ML IV SCH ×2 (09:00→17:00)
[2020-01-19] MEDS: ALLOPURINOL 300 MG TAB PO SCH (09:00)
[2020-01-19] MEDS: NITROFURANTOIN 50 MG CAP PO SCH (09:00)
[2020-01-19] MEDS: MULTIVITAMINS/MINERALS TAB PO SCH (09:00)
--- NOTE | 2020-01-19 09:10 | NUR ---
AC TO [place] HR 140/MF CHECKED THE PT SE WENT TO BATH ROOM FOR BM ,THEN THE HR 110 /MT
--- NOTE | 2020-01-19 10:16 | NUR ---
Dictated DC summary: [id number]
--- NOTE | 2020-01-19 10:42 | Progress Note ---
DATE: 01/19/2020 CHIEF COMPLAINT/HISTORY OF PRESENT ILLNESS: This is an 89-year-old white woman, whose primary treating diagnosis is sepsis secondary to diverticulitis. The patient states she does feel much better today, but the patient still has soreness in her left lower quadrant abdominal area. The patient had blood work today and was found to have potassium 3.5. The patient's BUN and creatinine are 13 and 1.02, respectively. The patient's white blood cell count today is 8900 with 67% segmented neutrophils. The patient states that the bleeding from rectum has resolved. The patient is tolerating antibiotics quite well, namely ciprofloxacin and clindamycin. The patient states her nausea and vomiting has resolved. REVIEW OF SYSTEMS: As per HPI. PHYSICAL EXAMINATION: GENERAL: She is awake, alert, and fluent. She is very pleasant on exam. Her adult daughter is at bedside. VITAL SIGNS: Height is 5 feet 5 inches, weight 180 pounds, BMI 30. 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 INTEGUMENT: Skin is warm and dry. No pallor, jaundice, or diaphoresis. HEENT: Anicteric sclerae. Moist mucous membranes. NECK: Supple. CARDIOVASCULAR: Distant heart sounds. Tachycardic rate with irregular rhythm. LUNGS: No rales. No rhonchi or wheezes. ABDOMEN: Soft. She does have tenderness when palpating the left lower quadrant area, but no rebound or guarding is appreciated. EXTREMITIES: No edema or deformity. NEUROLOGIC: Intact. DIAGNOSES: 1. Sepsis secondary to diverticulitis, resolved. 2. Sigmoid diverticulitis, resolving. 3. [id number] renal insufficiency, resolved. 4. Stage 2 chronic kidney disease. 5. Chronic atrial fibrillation. 6. Chronic diastolic congestive heart failure. 7. Hypertensive heart disease. PLAN: 1. We will stop intravenous fluids since the patient's acute renal insufficiency has resolved, and she has hypertension as well as congestive heart failure. 2. Continue intravenous clindamycin and ciprofloxacin the for the patient's diverticulitis. 3. Follow renal function. 4. Follow white blood cell count. 5. Advance diet. 6. Replete electrolytes, particularly potassium. 7. Discharge planning for tomorrow, Monday, January 20, 2020. I spent 30 minutes in the care of this patient. MD FARHEEN Ferraro/RONNI /[id number] DAVI
--- NOTE | 2020-01-19 11:55 | NUR ---
AC TO [employer] HR 140-150 /MT ,CHECKED THE PT WAS IN BATH ROOM .CAME TO THE BED AND CHECKED HR 112/MT
[2020-01-19] MEDS ORDERED: POTASSIUM CHLORIDE 20 MEQ TAB CR PO ONE (12:00)
--- NOTE | 2020-01-19 18:56 | NUR ---
PT RESTING ON BED BED SIDE REPORT GIVEN TO ONCOMING NURSE
--- NOTE | 2020-01-19 19:36 | NUR ---
received report from day nurse. patient is resting comfortably in the bed. bed is in lowest position and call light is within reach. will continue to monitor patient.
[2020-01-19] MEDS: GEMFIBROZIL 600 MG TAB PO SCH (20:26)
[2020-01-20] VITALS: BP 143/80
[2020-01-20 04:00] VITALS: BP 148/83
[2020-01-20 06:11] LABS: BASOPHILS # (AUTO) 0.1 (0.0-0.1); BASOPHILS % 0.6 % (0.0-1.0); EOSINOPHILS # (AUTO) 0.5 (0.0-0.4); EOSINOPHILS % 5.3 % (0.0-6.0); HEMATOCRIT 35.3 % (34.2-44.1); HEMOGLOBIN 11.6 g/dL (12.0-16.0); LYMPHOCYTES % 20.7 % (18.0-39.1); MEAN CORPUSCULAR HEMOGLOBIN 30.9 pg (28-32); MEAN CORPUSCULAR HGB CONC 32.9 g/dL (31-35); MEAN CORPUSCULAR VOLUME 93.9 fL (81-99); MONOCYTES % 10.4 % (4.4-11.3); NEUTROPHILS # (AUTO) 5.9 (2.1-6.9); NEUTROPHILS % 62.5 % (38.7-80.0); PLATELET COUNT 249 x10e3/uL (140-360); RED BLOOD COUNT 3.76 x10e6/uL (3.6-5.1); RED CELL DISTRIBUTION WIDTH 17.8 % (11.7-14.4)
--- NOTE | 2020-01-20 06:41 | NUR ---
patient is resting comfortably in the bed. bed is in the lowest position and call light is within reach.
[2020-01-20 06:43] LABS: ALBUMIN 2.8 g/dL (3.5-5.0); ALBUMIN/GLOBULIN RATIO 0.8 (0.8-2.0); ANION GAP 11.6 mmol/L (8-16); CALCIUM 9.4 mg/dL (8.4-10.2); CREATININE, SERUM 1.25 mg/dL (0.57-1.11); POTASSIUM 3.6 mmol/L (3.5-5.1)
[2020-01-20 07:52] VITALS: BP 148/83
[2020-01-20 08:02] VITALS: BP 133/82
[2020-01-20] MEDS: NITROFURANTOIN 50 MG CAP PO SCH (09:00)
[2020-01-20] MEDS: DILTIAZEM HCL ER 120 MG CAP PO SCH (09:15)
[2020-01-20] MEDS: GABAPENTIN 100 MG CAP PO SCH (09:41)
[2020-01-20] MEDS: MULTIVITAMINS/MINERALS TAB PO SCH (09:41)
[2020-01-20] MEDS: PANTOPRAZOLE SOD 40 MG TABEC PO SCH (09:41)
[2020-01-20] MEDS: POTASSIUM CHLORIDE 20 MEQ TAB CR PO SCH (09:41)
[2020-01-20] MEDS: LISINOPRIL 20 MG TAB PO SCH (09:42)
[2020-01-20] MEDS: ASPIRIN 81 MG CHEW TAB PO SCH (09:42)
[2020-01-20] MEDS: FUROSEMIDE 40 MG TAB PO SCH (09:42)
[2020-01-20] MEDS: ALLOPURINOL 300 MG TAB PO SCH (09:43)
--- NOTE | 2020-01-20 10:41 | NUR ---
Pt's IV infiltrated; informed Dr. Carrillo unable to give AM dose of IV antibiotics. MD states pt will be discharged shortly.
--- NOTE | 2020-01-20 11:11 | NUR ---
Dictated DC summary: [id number]
--- NOTE | 2020-01-20 11:31 | Discharge Summary ---
ADMITTING DIAGNOSES: 1. Sepsis secondary to acute sigmoid diverticulitis. 2. Sigmoid diverticulitis. 3. Chronic diastolic congestive heart failure. 4. Acute on chronic renal insufficiency secondary to acute tubular necrosis. 5. Chronic atrial fibrillation. 6. Hypertensive heart disease. 7. Type 2 diabetes mellitus. DISCHARGE DIAGNOSES: 1. Sepsis secondary to sigmoid diverticulitis, resolved. 2. Sigmoid diverticulitis, resolving. 3. Acute on chronic renal insufficiency secondary to acute tubular necrosis, resolved. 4. Stage 2 chronic kidney disease. 5. Chronic atrial fibrillation. 6. Chronic diastolic congestive heart failure. 7. Hypertensive heart disease. 8. Type 2 diabetes mellitus. HOSPITAL COURSE: An 89-year-old white woman, who was initially admitted to [facility] with diagnosis of sepsis secondary to acute sigmoid diverticulitis. The sigmoid diverticulitis was confirmed by computed tomography of the abdomen, which patient underwent twice first on January 16, 2020 and second on January 18, 2020. The patient improved clinically with intravenous antibiotics, namely clindamycin and ciprofloxacin. On admission, the patient's white blood cell count was 18,800 with 90% segmented neutrophils. On discharge, white blood cell count was 9500 with 60% segmented neutrophils. On admission, the patient's BUN and creatinine were 31 and 1.78 respectively. On day of discharge, the patient's BUN and creatinine were 17 and 1.25 respectively. The patient's condition on discharge was stable. The patient is tolerating regular diet on discharge. DISCHARGE MEDICATIONS: 1. Ciprofloxacin 250 mg twice a day for 10 days. 2. Furosemide 40 mg daily. 3. Allopurinol 300 mg daily. 4. Lisinopril 10 mg b.i.d. 5. Aspirin 81 mg daily. 6. Potassium chloride 20 mEq daily. 7. Pantoprazole 40 mg daily. 8. Multivitamin daily. 9. Gabapentin mg 100 mg b.i.d. 10. Gemfibrozil 600 mg at bedtime. 11. Diltiazem 120 mg daily. 12. Nitrofurantoin 50 mg daily. 13. Levemir insulin 25 units sc qhs. 14. Humalog sliding scale insulin. FOLLOWUP INSTRUCTIONS: The patient is instructed to follow up with Dr. Sihv Keane within 7-10 days. MD FARHEEN Ferraro/MIRAL /[id number] cc: DO DAVI Stanley
[2020-01-20 12:00] VITALS: BP 133/99
== END 2020-01-20 12:12 | disposition home or self-care (01) | DRG 871 ==
LOC: ER 02:33 → ERHOLD 05:58 → MED/SURG2 07:46
DX: A41.9 Sepsis, unspecified organism (principal); N17.0 Acute kidney failure with tubular necrosis; K57.92 Diverticulitis of intestine, part unspecified, without perforation or abscess without bleeding; I13.0 Hypertensive heart and chronic kidney disease with heart failure and stage 1 through stage 4 chronic kidney disease, or unspecified chronic kidney disease; I50.32 Chronic diastolic (congestive) heart failure; I48.20 Chronic atrial fibrillation, unspecified; N18.2 Chronic kidney disease, stage 2 (mild); E11.22 Type 2 diabetes mellitus with diabetic chronic kidney disease; Z79.4 Long term (current) use of insulin; Z11.59 Encounter for screening for other viral diseases; Z79.01 Long term (current) use of anticoagulants; M81.0 Age-related osteoporosis without current pathological fracture
CPT/HCPCS: 36415; 74176; 80048; 80053; 82550; 82553; 82948; 83605; 83690; 83880; 84484; 85025; 85610; 85730; 86850; 86900; 87040; 87635; 93005; 99284; J7030

== ENCOUNTER → 2020-03-21 | Outpatient (CLI) | payer MEDICARE, OTHER ==
[~2020-03-21] MED LIST changes: +IOPAMIDOL 370 MG/ML 200 ML INFUS..BTL INJ ONE; +SODIUM CHLORIDE 0.9% 250ML 500 ML ONE; +SODIUM CHLORIDE 0.9% 500ML 0 ML ONE; +SODIUM CHLORIDE 0.9% 50ML 50 ML ONE
[2020-03-21 10:58] LABS: CREATININE, SERUM 1.44 mg/dL (0.57-1.11)
--- NOTE | 2020-03-21 12:42 | Diagnostic Imaging Report ---
EXAM: CT Abdomen and Pelvis WITH intravenous contrast INDICATION: Perianal mass COMPARISON: CT abdomen and pelvis of 01/18/2020 and 01/16/2020 TECHNIQUE: Abdomen and pelvis were scanned utilizing a multidetector helical scanner from the lung base to the pubic symphysis after administration of IV contrast. Coronal and sagittal reformations were obtained. Routine protocol was performed. Scan was performed during portal venous phase. IV CONTRAST: 100mL of Isovue 370 ORAL CONTRAST: Water RADIATION DOSE: Total DLP: 532 mGy*cm Dose modulation, iterative reconstruction, and/or weight based adjustment of the mA/kV was utilized to reduce the radiation dose to as low as reasonably achievable. FINDINGS: LOWER THORAX: Unchanged left lower lobe subpleural 5 mm pulmonary nodule. HEPATOBILIARY: Multiple subcentimeter left hepatic hypodensities are too small to adequately characterize but likely represent cysts. Diffuse hepatic steatosis. No biliary ductal dilation. Unremarkable gallbladder. SPLEEN: Numerous punctate calcified granulomas in the nonenlarged spleen. PANCREAS: No focal masses or ductal dilatation. ADRENALS: No adrenal nodules. KIDNEYS/URETERS: No hydronephrosis or solid mass lesion. Unchanged bilateral renal cysts. 3 mm nonobstructive left midpole renal calculus. PELVIC ORGANS/BLADDER: Hysterectomy. PERITONEUM / RETROPERITONEUM: No free air or free fluid. LYMPH NODES: No lymphadenopathy. VESSELS: Moderate calcified and noncalcified atherosclerotic plaques of the nonaneurysmal abdominal aorta and major branches. Independent origin of the common hepatic artery from the aorta. GI TRACT: Slight interval increase in size of 3.4 cm right perianal soft tissue mass. Increased stool burden throughout the colon. No abnormal bowel thickening. No bowel obstruction. BONES AND SOFT TISSUES: No acute osseous injury. No suspicious lytic or blastic lesions. Levoconvex curvature of the lumbar spine centered at L2. Degenerative changes of the visualized spine. IMPRESSION: Slight interval increase in size of right perianal soft tissue mass which now measures up to 3.4 cm compared to 3.2 cm previously. Unchanged left lower lobe subpleural 5 mm pulmonary nodule. Signed by: Elías Ontiveros MD on 03/21/2020 12:38 PM
== END ==
LOC: CT 09:33
PROVIDERS: ATTEND Internal Medicine Gastroenterology
DX: K62.89 Other specified diseases of anus and rectum (principal)
CPT/HCPCS: 36415; 74177; 82565; 84520; J7050; Q9967; J7040

== ENCOUNTER → 2020-07-07 | Outpatient (CLI) | payer MEDICARE ==
[~2020-07-07] MED LIST changes: +DIATRIZOATE MEGL/DIATRIZOA SOD 30 ML BTL PO ONE; -SODIUM CHLORIDE 0.9% 250ML 500 ML ONE; -SODIUM CHLORIDE 0.9% 500ML 0 ML ONE; +SODIUM CHLORIDE 0.9% 500ML 500 ML ONE
[2020-07-07 12:20] LABS: CREATININE, SERUM 1.26 mg/dL (0.57-1.11)
== END ==
LOC: CT 11:34
PROVIDERS: ATTEND Surgery
DX: R19.09 Other intra-abdominal and pelvic swelling, mass and lump (principal)
CPT/HCPCS: 36415; 74177; 82565; 84520; 96360; J7040; Q9967

== ENCOUNTER 2020-10-14 19:07 | Emergency (ER) | payer MEDICARE ==
[~2020-10-14] VITALS: Ht 165.1 cm; Wt 81.6 kg
[~2020-10-14 19:07] MED LIST changes: -DIATRIZOATE MEGL/DIATRIZOA SOD 30 ML BTL PO ONE; -IOPAMIDOL 370 MG/ML 200 ML INFUS..BTL INJ ONE; -SODIUM CHLORIDE 0.9% 500ML 500 ML ONE; -SODIUM CHLORIDE 0.9% 50ML 50 ML ONE
[2020-10-14 23:21] VITALS: BP 147/86
== END 2020-10-14 23:23 | disposition home or self-care (01) ==
LOC: ER 20:02
DX: K59.00 Constipation, unspecified (principal); R10.33 Periumbilical pain; I10 Essential (primary) hypertension; E11.9 Type 2 diabetes mellitus without complications; I48.91 Unspecified atrial fibrillation; E03.9 Hypothyroidism, unspecified; M32.9 Systemic lupus erythematosus, unspecified; N18.9 Chronic kidney disease, unspecified; Z85.3 Personal history of malignant neoplasm of breast
CPT/HCPCS: 74018; 99283

== ENCOUNTER 2021-01-29 19:30 | Inpatient (IN) | payer MEDICARE ==
[~2021-01-29] VITALS: Ht 165.1 cm; Wt 68.0 kg
[2021-01-29 22:00] VITALS: BP 172/117
[2021-01-29 22:41] VITALS: BP 172/117
[2021-01-29] MEDS ORDERED: FUROSEMIDE INJ 10 MG/ML 4 ML VIAL IV ONE (23:45)
[2021-01-29] MEDS ORDERED: GABAPENTIN 100 MG CAP PO SCH (23:45)
[2021-01-29] MEDS ORDERED: DILTIAZEM HCL 60 MG TAB PO SCH (23:45)
[2021-01-29] MEDS ORDERED: ASPIRIN 325 MG TAB PO SCH (23:45)
[2021-01-29] MEDS ORDERED: DEXTROSE 50% SYRINGE 50 ML IV PRN (23:45)
[2021-01-30] VITALS (7 sets, daily range): BP systolic 123–151; BP diastolic 78–100
[2021-01-30] MEDS: INSULIN REGULAR, HUMAN 100 UNIT/1 ML SQ SCH ×4 (07:30→20:36)
[2021-01-30] MEDS: GABAPENTIN 100 MG CAP PO SCH ×3 (08:00→20:36)
[2021-01-30] MEDS ORDERED: FUROSEMIDE INJ 10 MG/ML 4 ML VIAL IV SCH (09:00)
[2021-01-30] MEDS: POTASSIUM CHLORIDE 20 MEQ TAB CR PO SCH (09:00)
[2021-01-30] MEDS ORDERED: GABAPENTIN 100 MG CAP PO SCH (09:00)
[2021-01-30] MEDS: ASPIRIN 81 MG CHEW TAB PO SCH (09:52)
[2021-01-30] MEDS: DILTIAZEM HCL ER 120 MG CAP PO SCH (09:52)
[2021-01-30] MEDS: ALLOPURINOL 300 MG TAB PO SCH (09:52)
[2021-01-30] MEDS: TAMSULOSIN HCL 0.4 MG CAP PO SCH (09:52)
[2021-01-30] MEDS: PANTOPRAZOLE SOD 40 MG TABEC PO SCH (09:52)
[2021-01-30] MEDS: DOCUSATE SODIUM 100 MG CAP PO SCH (17:34)
[2021-01-30] MEDS: FUROSEMIDE INJ 10 MG/ML 4 ML VIAL IV SCH (17:34)
[2021-01-30] MEDS: INSULIN GLARGINE 100 UNITS/ML VIAL SQ SCH ×3 (20:37→21:00)
[2021-01-31] VITALS (7 sets, daily range): BP systolic 119–158; BP diastolic 78–93
[2021-01-31] MEDS: INSULIN REGULAR, HUMAN 100 UNIT/1 ML SQ SCH ×4 (07:27→21:00)
[2021-01-31 08:15] LABS: BASOPHILS # (AUTO) 0.1 (0.0-0.1); EOSINOPHILS # (AUTO) 0.3 (0.0-0.4); HEMATOCRIT 38.1 % (34.2-44.1); HEMOGLOBIN 11.6 g/dL (12.0-16.0); LYMPHOCYTES # (AUTO) 2.1 (1.0-3.2); LYMPHOCYTES % 25.2 % (18.0-39.1); MEAN CORPUSCULAR HGB CONC 30.4 g/dL (31-35); MEAN CORPUSCULAR VOLUME 95.3 fL (81-99); MONOCYTES # (AUTO) 0.9 (0.2-0.8); MONOCYTES % 10.4 % (4.4-11.3); NEUTROPHILS # (AUTO) 4.9 (2.1-6.9); PLATELET COUNT 242 x10e3/uL (140-360); RED CELL DISTRIBUTION WIDTH 15.7 % (11.7-14.4)
[2021-01-31 08:36] LABS: ALBUMIN 3.2 g/dL (3.5-5.0); ALBUMIN/GLOBULIN RATIO 1.1 (0.8-2.0); ANION GAP 13.7 mmol/L (8-16); CALCIUM 9.6 mg/dL (8.4-10.2); CHOL/HDL RATIO 5.2 (3.0-3.6); CREATININE, SERUM 1.09 mg/dL (0.57-1.11); POTASSIUM 3.7 mmol/L (3.5-5.1)
[2021-01-31] MEDS: GABAPENTIN 100 MG CAP PO SCH ×3 (08:42→21:31)
[2021-01-31] MEDS: FUROSEMIDE INJ 10 MG/ML 4 ML VIAL IV SCH ×2 (08:42→17:37)
[2021-01-31] MEDS: ASPIRIN 81 MG CHEW TAB PO SCH (08:42)
[2021-01-31] MEDS: PANTOPRAZOLE SOD 40 MG TABEC PO SCH (08:43)
[2021-01-31] MEDS: DOCUSATE SODIUM 100 MG CAP PO SCH ×2 (08:43→17:37)
[2021-01-31] MEDS: POTASSIUM CHLORIDE 20 MEQ TAB CR PO SCH (08:43)
[2021-01-31] MEDS: ALLOPURINOL 300 MG TAB PO SCH (08:43)
[2021-01-31] MEDS: TAMSULOSIN HCL 0.4 MG CAP PO SCH (08:43)
[2021-01-31] MEDS: DILTIAZEM HCL ER 120 MG CAP PO SCH (08:43)
[2021-01-31 08:56] LABS: THYROID STIMULATING HORMONE 0.972 uIU/mL (0.350-4.940)
[2021-01-31] MEDS ORDERED: BISACODYL 10 MG SUPP PR PRN (13:30)
[2021-01-31] MEDS ORDERED: MAGNESIUM HYDROXIDE 30 ML UDC PO ONE (14:00)
[2021-01-31] MEDS: SENNOSIDES 8.6 MG TAB PO SCH (17:37)
[2021-01-31] MEDS: INSULIN GLARGINE 100 UNITS/ML VIAL SQ SCH ×2 (21:00)
[2021-02-01] VITALS (7 sets, daily range): BP systolic 125–141; BP diastolic 62–97
[2021-02-01 06:43] LABS: BASOPHILS # (AUTO) 0.1 (0.0-0.1); BASOPHILS % 0.6 % (0.0-1.0); EOSINOPHILS # (AUTO) 0.3 (0.0-0.4); EOSINOPHILS % 3.7 % (0.0-6.0); HEMATOCRIT 37.3 % (34.2-44.1); HEMOGLOBIN 11.4 g/dL (12.0-16.0); LYMPHOCYTES # (AUTO) 1.7 (1.0-3.2); LYMPHOCYTES % 18.7 % (18.0-39.1); MEAN CORPUSCULAR HEMOGLOBIN 28.9 pg (28-32); MEAN CORPUSCULAR HGB CONC 30.6 g/dL (31-35); MEAN CORPUSCULAR VOLUME 94.7 fL (81-99); NEUTROPHILS # (AUTO) 5.8 (2.1-6.9); NEUTROPHILS % 65.7 % (38.7-80.0); PLATELET COUNT 236 x10e3/uL (140-360); RED BLOOD COUNT 3.94 x10e6/uL (3.6-5.1); RED CELL DISTRIBUTION WIDTH 15.4 % (11.7-14.4)
[2021-02-01 07:06] LABS: ALBUMIN 3.1 g/dL (3.5-5.0); ALBUMIN/GLOBULIN RATIO 1.1 (0.8-2.0); ANION GAP 11.6 mmol/L (8-16); CALCIUM 9.6 mg/dL (8.4-10.2); CREATININE, SERUM 0.85 mg/dL (0.57-1.11); POTASSIUM 3.6 mmol/L (3.5-5.1)
[2021-02-01] MEDS: INSULIN REGULAR, HUMAN 100 UNIT/1 ML SQ SCH ×4 (07:30→20:41)
[2021-02-01] MEDS: ASPIRIN 81 MG CHEW TAB PO SCH (09:26)
[2021-02-01] MEDS: GABAPENTIN 100 MG CAP PO SCH ×3 (09:26→20:41)
[2021-02-01] MEDS: DILTIAZEM HCL ER 120 MG CAP PO SCH ×2 (09:26→16:45)
[2021-02-01] MEDS: DOCUSATE SODIUM 100 MG CAP PO SCH ×2 (09:27→16:45)
[2021-02-01] MEDS: PANTOPRAZOLE SOD 40 MG TABEC PO SCH (09:27)
[2021-02-01] MEDS: TAMSULOSIN HCL 0.4 MG CAP PO SCH (09:27)
[2021-02-01] MEDS: ALLOPURINOL 300 MG TAB PO SCH (09:28)
[2021-02-01] MEDS: SENNOSIDES 8.6 MG TAB PO SCH ×2 (09:28→16:46)
[2021-02-01] MEDS: FUROSEMIDE INJ 10 MG/ML 4 ML VIAL IV SCH ×2 (09:29→16:46)
[2021-02-01] MEDS: POTASSIUM CHLORIDE 20 MEQ TAB CR PO SCH (09:29)
[2021-02-01] MEDS ORDERED: DIGOXIN 0.25 MG TAB PO ONE (10:00)
[2021-02-01] MEDS ORDERED: DIGOXIN INJ 0.25 MG/ML 2 ML AMP IV ONE (10:00)
[2021-02-01] MEDS: DIGOXIN 0.125 MG TAB PO SCH (10:38)
[2021-02-01] MEDS: METOPROLOL TARTRATE 25 MG TAB PO SCH (16:45)
[2021-02-01] MEDS: ACETAMINOPHEN 325 MG TAB PO PRN (20:39)
[2021-02-01] MEDS: INSULIN GLARGINE 100 UNITS/ML VIAL SQ SCH ×2 (20:42)
[2021-02-02] VITALS (8 sets, daily range): BP systolic 103–138; BP diastolic 52–78
[2021-02-02 07:14] LABS: BASOPHILS # (AUTO) 0.1 (0.0-0.1); BASOPHILS % 0.7 % (0.0-1.0); EOSINOPHILS # (AUTO) 0.3 (0.0-0.4); EOSINOPHILS % 3.3 % (0.0-6.0); HEMATOCRIT 39.4 % (34.2-44.1); LYMPHOCYTES % 22.6 % (18.0-39.1); MEAN CORPUSCULAR HEMOGLOBIN 28.6 pg (28-32); MEAN CORPUSCULAR HGB CONC 30.5 g/dL (31-35); NEUTROPHILS # (AUTO) 5.5 (2.1-6.9); NEUTROPHILS % 62.1 % (38.7-80.0); PLATELET COUNT 242 x10e3/uL (140-360); RED BLOOD COUNT 4.19 x10e6/uL (3.6-5.1); RED CELL DISTRIBUTION WIDTH 15.5 % (11.7-14.4)
[2021-02-02] MEDS: INSULIN REGULAR, HUMAN 100 UNIT/1 ML SQ SCH ×4 (07:30→21:00)
[2021-02-02 07:31] LABS: ALBUMIN/GLOBULIN RATIO 1.1 (0.8-2.0); ANION GAP 12.6 mmol/L (8-16); CALCIUM 9.8 mg/dL (8.4-10.2); CREATININE, SERUM 0.83 mg/dL (0.57-1.11); POTASSIUM 3.6 mmol/L (3.5-5.1)
[2021-02-02] MEDS: SENNOSIDES 8.6 MG TAB PO SCH ×2 (08:57→17:00)
[2021-02-02] MEDS: POTASSIUM CHLORIDE 20 MEQ TAB CR PO SCH (08:58)
[2021-02-02] MEDS: GABAPENTIN 100 MG CAP PO SCH ×3 (09:01→21:13)
[2021-02-02] MEDS: ASPIRIN 81 MG CHEW TAB PO SCH (09:01)
[2021-02-02] MEDS: FUROSEMIDE INJ 10 MG/ML 4 ML VIAL IV SCH ×2 (09:01→17:14)
[2021-02-02] MEDS: DOCUSATE SODIUM 100 MG CAP PO SCH ×2 (09:02→17:00)
[2021-02-02] MEDS: TAMSULOSIN HCL 0.4 MG CAP PO SCH (09:02)
[2021-02-02] MEDS: DILTIAZEM HCL ER 120 MG CAP PO SCH ×2 (09:02→17:11)
[2021-02-02] MEDS: PANTOPRAZOLE SOD 40 MG TABEC PO SCH (09:03)
[2021-02-02] MEDS: ALLOPURINOL 300 MG TAB PO SCH (09:03)
[2021-02-02] MEDS: ACETAMINOPHEN 325 MG TAB PO PRN (09:03)
[2021-02-02] MEDS: METOPROLOL TARTRATE 25 MG TAB PO SCH ×2 (09:03→17:10)
[2021-02-02] MEDS: APIXAB 2.5 MG TABLET PO SCH (17:09)
[2021-02-02] MEDS: INSULIN GLARGINE 100 UNITS/ML VIAL SQ SCH (21:00)
[2021-02-03] VITALS (8 sets, daily range): BP systolic 120–147; BP diastolic 62–78
[2021-02-03 05:23] LABS: BASOPHILS # (AUTO) 0.1 (0.0-0.1); BASOPHILS % 0.7 % (0.0-1.0); EOSINOPHILS # (AUTO) 0.4 (0.0-0.4); EOSINOPHILS % 4.3 % (0.0-6.0); HEMATOCRIT 36.8 % (34.2-44.1); HEMOGLOBIN 11.5 g/dL (12.0-16.0); LYMPHOCYTES # (AUTO) 2.4 (1.0-3.2); LYMPHOCYTES % 26.1 % (18.0-39.1); MEAN CORPUSCULAR HEMOGLOBIN 29.1 pg (28-32); MEAN CORPUSCULAR HGB CONC 31.3 g/dL (31-35); MEAN CORPUSCULAR VOLUME 93.2 fL (81-99); MONOCYTES # (AUTO) 1.1 (0.2-0.8); MONOCYTES % 11.9 % (4.4-11.3); NEUTROPHILS # (AUTO) 5.2 (2.1-6.9); NEUTROPHILS % 56.6 % (38.7-80.0); PLATELET COUNT 244 x10e3/uL (140-360); RED BLOOD COUNT 3.95 x10e6/uL (3.6-5.1); RED CELL DISTRIBUTION WIDTH 15.4 % (11.7-14.4)
[2021-02-03 05:58] LABS: ANION GAP 12.7 mmol/L (8-16); CALCIUM 9.8 mg/dL (8.4-10.2); CREATININE, SERUM 1.02 mg/dL (0.57-1.11); POTASSIUM 3.7 mmol/L (3.5-5.1)
[2021-02-03] MEDS: INSULIN REGULAR, HUMAN 100 UNIT/1 ML SQ SCH ×4 (07:30→21:00)
[2021-02-03] MEDS: GABAPENTIN 100 MG CAP PO SCH ×3 (08:56→21:32)
[2021-02-03] MEDS: TAMSULOSIN HCL 0.4 MG CAP PO SCH (08:56)
[2021-02-03] MEDS: ASPIRIN 81 MG CHEW TAB PO SCH (08:57)
[2021-02-03] MEDS: DOCUSATE SODIUM 100 MG CAP PO SCH ×2 (08:57→16:05)
[2021-02-03] MEDS: POTASSIUM CHLORIDE 20 MEQ TAB CR PO SCH (08:58)
[2021-02-03] MEDS: APIXAB 2.5 MG TABLET PO SCH ×2 (08:58→16:06)
[2021-02-03] MEDS: ALLOPURINOL 300 MG TAB PO SCH (08:59)
[2021-02-03] MEDS: SENNOSIDES 8.6 MG TAB PO SCH ×2 (08:59→16:06)
[2021-02-03] MEDS: DIGOXIN 0.125 MG TAB PO SCH (08:59)
[2021-02-03] MEDS: PANTOPRAZOLE SOD 40 MG TABEC PO SCH (08:59)
[2021-02-03] MEDS: METOPROLOL TARTRATE 25 MG TAB PO SCH ×2 (08:59→16:06)
[2021-02-03] MEDS: FUROSEMIDE INJ 10 MG/ML 4 ML VIAL IV SCH ×2 (09:02→16:05)
[2021-02-03] MEDS: ACETAMINOPHEN 325 MG TAB PO PRN (09:06)
[2021-02-03] MEDS: DILTIAZEM HCL 60 MG TAB PO SCH ×2 (12:20→20:00)
[2021-02-03] MEDS ORDERED: KETOROLAC TROMETHAMINE 10 MG TAB PO PRN (16:45)
[2021-02-03] MEDS: KETOROLAC TROMETHAMINE 10 MG TAB PO SCH (18:43)
[2021-02-03] MEDS: INSULIN GLARGINE 100 UNITS/ML VIAL SQ SCH (21:00)
[2021-02-04 04:30] VITALS: BP 140/77
[2021-02-04] MEDS: INSULIN REGULAR, HUMAN 100 UNIT/1 ML SQ SCH ×3 (07:30→16:30)
[2021-02-04 08:06] VITALS: BP 156/85
[2021-02-04 08:22] VITALS: BP 156/85
[2021-02-04] MEDS: DOCUSATE SODIUM 100 MG CAP PO SCH ×2 (08:41→16:57)
[2021-02-04] MEDS: ASPIRIN 81 MG CHEW TAB PO SCH (08:41)
[2021-02-04] MEDS: GABAPENTIN 100 MG CAP PO SCH ×2 (08:41→16:58)
[2021-02-04] MEDS: FUROSEMIDE INJ 10 MG/ML 4 ML VIAL IV SCH ×2 (08:41→16:57)
[2021-02-04] MEDS: APIXAB 2.5 MG TABLET PO SCH ×2 (08:42→16:57)
[2021-02-04] MEDS: PANTOPRAZOLE SOD 40 MG TABEC PO SCH (08:42)
[2021-02-04] MEDS: SENNOSIDES 8.6 MG TAB PO SCH ×2 (08:42→16:58)
[2021-02-04] MEDS: METOPROLOL TARTRATE 25 MG TAB PO SCH ×2 (08:42→16:58)
[2021-02-04] MEDS: TAMSULOSIN HCL 0.4 MG CAP PO SCH (08:42)
[2021-02-04] MEDS: POTASSIUM CHLORIDE 20 MEQ TAB CR PO SCH (08:42)
[2021-02-04] MEDS: ALLOPURINOL 300 MG TAB PO SCH (08:43)
[2021-02-04] MEDS: KETOROLAC TROMETHAMINE 10 MG TAB PO SCH (08:43)
[2021-02-04 12:33] VITALS: BP 120/84
[2021-02-04] MEDS ORDERED: METOPROLOL TART25 MG PO (16:34)
[2021-02-04] MEDS ORDERED: KEFLEX125 MG/5 M PO (16:35)
[2021-02-04 16:52] VITALS: BP 145/98
== END 2021-02-04 17:16 | disposition home health service (06) | DRG 291 ==
LOC: MED/SURG3 21:53
DX: I13.0 Hypertensive heart and chronic kidney disease with heart failure and stage 1 through stage 4 chronic kidney disease, or unspecified chronic kidney disease (principal); I50.43 Acute on chronic combined systolic (congestive) and diastolic (congestive) heart failure; I48.20 Chronic atrial fibrillation, unspecified; N18.30 Chronic kidney disease, stage 3 unspecified; E11.22 Type 2 diabetes mellitus with diabetic chronic kidney disease; I25.10 Atherosclerotic heart disease of native coronary artery without angina pectoris; K59.00 Constipation, unspecified
CPT/HCPCS: 36415; 71045; 71046; 80048; 80053; 80061; 80162; 82948; 83880; 84443; 85025; 93005; 93306; 97139; J1160; J1815; J1817; J1940

== ENCOUNTER 2021-02-17 12:56 | Inpatient (IN) | payer MEDICARE ==
[~2021-02-17] VITALS: Ht 153.7 cm; Wt 68.0 kg
[~2021-02-17 12:56] MED LIST changes: +KEFLEX125 MG/5 M PO; +METOPROLOL TART25 MG PO
[2021-02-17] MEDS ORDERED: ASPIRIN 81 MG CHEW TAB PO ONE ×2 (13:15→15:45)
[2021-02-17 14:08] LABS: ALBUMIN 3.6 g/dL (3.5-5.0); ALBUMIN/GLOBULIN RATIO 1.1 (0.8-2.0); ANION GAP 14.6 mmol/L (8-16); CALCIUM 9.8 mg/dL (8.4-10.2); CREATININE, SERUM 1.13 mg/dL (0.57-1.11); POTASSIUM 3.6 mmol/L (3.5-5.1)
[2021-02-17 14:10] LABS: BASOPHILS # (AUTO) 0.1 (0.0-0.1); BASOPHILS % 1.1 % (0.0-1.0); EOSINOPHILS # (AUTO) 0.3 (0.0-0.4); EOSINOPHILS % 3.1 % (0.0-6.0); HEMATOCRIT 37.9 % (34.2-44.1); HEMOGLOBIN 11.5 g/dL (12.0-16.0); LYMPHOCYTES # (AUTO) 2.7 (1.0-3.2); LYMPHOCYTES % 26.7 % (18.0-39.1); MEAN CORPUSCULAR HEMOGLOBIN 28.3 pg (28-32); MEAN CORPUSCULAR HGB CONC 30.3 g/dL (31-35); MEAN CORPUSCULAR VOLUME 93.3 fL (81-99); MONOCYTES # (AUTO) 0.9 (0.2-0.8); MONOCYTES % 9.2 % (4.4-11.3); NEUTROPHILS % 59.6 % (38.7-80.0); PLATELET COUNT 289 x10e3/uL (140-360); RED BLOOD COUNT 4.06 x10e6/uL (3.6-5.1); RED CELL DISTRIBUTION WIDTH 15.8 % (11.7-14.4)
[2021-02-17] MEDS ORDERED: ALBUTEROL/IPRATROPIUM 3 ML NEB NEB ONE (14:15)
[2021-02-17] MEDS ORDERED: FUROSEMIDE INJ 10 MG/ML 4 ML VIAL IV SCH (17:00)
[2021-02-17 20:00] VITALS: BP 147/83
[2021-02-17] MEDS ORDERED: FLOMAX0.4 MG PO (20:00)
[2021-02-17] MEDS ORDERED: DEXTROSE 50% SYRINGE 50 ML IV PRN (22:00)
[2021-02-17] MEDS: GABAPENTIN 100 MG CAP PO SCH (23:49)
[2021-02-18] VITALS: BP 143/90
[2021-02-18 04:00] VITALS: BP 146/99
[2021-02-18 05:19] LABS: CREATINE KINASE MB 0.9 ng/mL (0-5.0)
[2021-02-18] MEDS: INSULIN REGULAR, HUMAN 100 UNIT/1 ML SQ SCH ×4 (07:30→21:00)
[2021-02-18 07:57] VITALS: BP 144/95
[2021-02-18] MEDS: PANTOPRAZOLE SOD 40 MG TABEC PO SCH (08:00)
[2021-02-18 08:28] VITALS: BP 144/95
[2021-02-18] MEDS ORDERED: GABAPENTIN 100 MG CAP PO SCH (09:00)
[2021-02-18] MEDS: ASPIRIN 81 MG CHEW TAB PO SCH (09:07)
[2021-02-18] MEDS: GABAPENTIN 100 MG CAP PO SCH ×2 (09:08→16:26)
[2021-02-18] MEDS: TAMSULOSIN HCL 0.4 MG CAP PO SCH (09:08)
[2021-02-18] MEDS: POTASSIUM CHLORIDE 20 MEQ TAB CR PO SCH (09:08)
[2021-02-18] MEDS: METOPROLOL SUCCINATE 25 MG TAB XL PO SCH ×2 (09:09→16:26)
[2021-02-18] MEDS: ALLOPURINOL 300 MG TAB PO SCH (09:10)
[2021-02-18] MEDS: DIGOXIN 0.125 MG TAB PO SCH (10:00)
[2021-02-18] MEDS ORDERED: METOLAZONE 5 MG TAB PO ONE (10:15)
[2021-02-18 10:28] LABS: CREATINE KINASE MB 0.9 ng/mL (0-5.0)
[2021-02-18 13:44] VITALS: BP 147/98
[2021-02-18 14:41] LABS: CREATINE KINASE MB 0.8 ng/mL (0-5.0)
[2021-02-18] MEDS: APIXAB 2.5 MG TABLET PO SCH (16:26)
[2021-02-18] MEDS: DOCUSATE SODIUM 100 MG CAP PO SCH (16:26)
[2021-02-18] MEDS: FUROSEMIDE INJ 10 MG/ML 4 ML VIAL IV SCH (16:26)
[2021-02-18 16:44] VITALS: BP 126/75
[2021-02-19] VITALS (7 sets, daily range): BP systolic 127–144; BP diastolic 70–92
[2021-02-19 04:55] LABS: BASOPHILS # (AUTO) 0.1 (0.0-0.1); BASOPHILS % 0.7 % (0.0-1.0); EOSINOPHILS # (AUTO) 0.3 (0.0-0.4); EOSINOPHILS % 3.6 % (0.0-6.0); HEMATOCRIT 39.5 % (34.2-44.1); HEMOGLOBIN 12.6 g/dL (12.0-16.0); LYMPHOCYTES # (AUTO) 2.1 (1.0-3.2); LYMPHOCYTES % 22.5 % (18.0-39.1); MEAN CORPUSCULAR HGB CONC 31.9 g/dL (31-35); MONOCYTES # (AUTO) 0.9 (0.2-0.8); MONOCYTES % 10.2 % (4.4-11.3); NEUTROPHILS # (AUTO) 5.7 (2.1-6.9); NEUTROPHILS % 62.6 % (38.7-80.0); PLATELET COUNT 272 x10e3/uL (140-360); RED BLOOD COUNT 4.34 x10e6/uL (3.6-5.1); RED CELL DISTRIBUTION WIDTH 15.4 % (11.7-14.4)
[2021-02-19 05:16] LABS: ALANINE AMINOTRANSFERASE 12 IU/L (0-55); ALBUMIN 3.3 g/dL (3.5-5.0); ALBUMIN/GLOBULIN RATIO 1.1 (0.8-2.0); ALKALINE PHOSPHATASE 90 IU/L (40-150); BLOOD UREA NITROGEN 18 mg/dL (7-26); BUN/CREATININE RATIO 19 (6-25); CALCIUM 10.1 mg/dL (8.4-10.2); CARBON DIOXIDE 34 mmol/L (22-29); CHLORIDE 97 mmol/L (98-107); CREATININE, SERUM 0.95 mg/dL (0.57-1.11); EST GLOMERULAR FILTRATION RATE 55 ML/MIN (60-); GLUCOSE 117 mg/dL (74-118); SODIUM 141 mmol/L (136-145)
[2021-02-19 06:00] LABS: DIGOXIN < 0.30 ng/mL (0.8-2.0)
[2021-02-19] MEDS: INSULIN REGULAR, HUMAN 100 UNIT/1 ML SQ SCH ×4 (07:30→21:51)
[2021-02-19] MEDS ORDERED: POTASSIUM CHLORIDE 20MEQ/100ML 100 ML IV STA (11:10)
[2021-02-19] MEDS: PANTOPRAZOLE SOD 40 MG TABEC PO SCH (11:10)
[2021-02-19] MEDS: DOCUSATE SODIUM 100 MG CAP PO SCH ×2 (11:11→18:16)
[2021-02-19] MEDS: APIXAB 2.5 MG TABLET PO SCH ×2 (11:11→18:16)
[2021-02-19] MEDS: FUROSEMIDE INJ 10 MG/ML 4 ML VIAL IV SCH ×2 (11:11→18:16)
[2021-02-19] MEDS: TAMSULOSIN HCL 0.4 MG CAP PO SCH (11:11)
[2021-02-19] MEDS: ASPIRIN 81 MG CHEW TAB PO SCH (11:11)
[2021-02-19] MEDS: POTASSIUM CHLORIDE 20 MEQ TAB CR PO SCH ×3 (11:12→15:00)
[2021-02-19] MEDS: GABAPENTIN 100 MG CAP PO SCH ×2 (11:12→18:16)
[2021-02-19] MEDS: ALLOPURINOL 300 MG TAB PO SCH (11:13)
[2021-02-19] MEDS: METOPROLOL SUCCINATE 25 MG TAB XL PO SCH ×2 (11:13→18:17)
[2021-02-19] MEDS ORDERED: MAGNESIUM HYDROXIDE 30 ML UDC PO ONE (11:30)
[2021-02-19] MEDS ORDERED: POTASSIUM CHLORIDE 10MEQ EA PO ONE (11:30)
[2021-02-20 00:22] VITALS: BP 138/80
[2021-02-20 05:04] VITALS: BP 126/79
[2021-02-20 05:24] LABS: ALBUMIN 3.5 g/dL (3.5-5.0); ALBUMIN/GLOBULIN RATIO 1.1 (0.8-2.0); ANION GAP 15.9 mmol/L (8-16); CALCIUM 10.5 mg/dL (8.4-10.2); CREATININE, SERUM 1.21 mg/dL (0.57-1.11); POTASSIUM 3.9 mmol/L (3.5-5.1)
[2021-02-20 07:29] VITALS: BP 125/88
[2021-02-20] MEDS: INSULIN REGULAR, HUMAN 100 UNIT/1 ML SQ SCH ×2 (07:30→10:57)
[2021-02-20] MEDS: PANTOPRAZOLE SOD 40 MG TABEC PO SCH (08:47)
[2021-02-20] MEDS: GABAPENTIN 100 MG CAP PO SCH (08:47)
[2021-02-20] MEDS: DOCUSATE SODIUM 100 MG CAP PO SCH (08:47)
[2021-02-20] MEDS: POTASSIUM CHLORIDE 20 MEQ TAB CR PO SCH (08:47)
[2021-02-20] MEDS: APIXAB 2.5 MG TABLET PO SCH (08:47)
[2021-02-20] MEDS: TAMSULOSIN HCL 0.4 MG CAP PO SCH (08:47)
[2021-02-20] MEDS: FUROSEMIDE INJ 10 MG/ML 4 ML VIAL IV SCH (08:47)
[2021-02-20] MEDS: ALLOPURINOL 300 MG TAB PO SCH (08:47)
[2021-02-20] MEDS: ASPIRIN 81 MG CHEW TAB PO SCH (08:47)
[2021-02-20] MEDS: METOPROLOL SUCCINATE 25 MG TAB XL PO SCH (08:47)
[2021-02-20] MEDS: DIGOXIN 0.125 MG TAB PO SCH (08:48)
[2021-02-20 08:51] VITALS: BP 125/88
[2021-02-20] MEDS ORDERED: LASIX80 MG PO (10:21)
[2021-02-20 11:09] VITALS: BP 93/68
[2021-02-20 12:00] VITALS: BP 110/72
== END 2021-02-20 12:42 | disposition home health service (06) | DRG 292 ==
LOC: ER 13:09 → ERHOLD 15:42 → MED/SURG 18:30
DX: I11.0 Hypertensive heart disease with heart failure (principal); I48.20 Chronic atrial fibrillation, unspecified; I50.33 Acute on chronic diastolic (congestive) heart failure; E11.9 Type 2 diabetes mellitus without complications; J44.9 Chronic obstructive pulmonary disease, unspecified; I48.91 Unspecified atrial fibrillation; K21.9 Gastro-esophageal reflux disease without esophagitis; M32.9 Systemic lupus erythematosus, unspecified; Z88.1 Allergy status to other antibiotic agents; Z88.2 Allergy status to sulfonamides; Z88.8 Allergy status to other drugs, medicaments and biological substances; Z91.048 Other nonmedicinal substance allergy status; E78.5 Hyperlipidemia, unspecified; E03.9 Hypothyroidism, unspecified; Z80.0 Family history of malignant neoplasm of digestive organs; Z82.49 Family history of ischemic heart disease and other diseases of the circulatory system; Z79.01 Long term (current) use of anticoagulants; Z91.19 Patient's noncompliance with other medical treatment and regimen; I25.10 Atherosclerotic heart disease of native coronary artery without angina pectoris; Z20.822 Contact with and (suspected) exposure to COVID-19; Z79.82 Long term (current) use of aspirin; Z79.4 Long term (current) use of insulin
CPT/HCPCS: 36415; 51700; 71045; 80053; 80162; 82550; 82553; 82948; 83036; 83735; 83880; 84484; 85025; 93005; 99284; J1817; J1940; U0002